=== PATIENT | male | born 1945 ===

== ENCOUNTER 2018-05-16 05:42 | Day surgery (SDC) | payer MEDICARE ==
[2018-04-02 10:16] VITALS: BMI 22.7
[2018-05-16 06:20] VITALS: O2SAT 100
[2018-05-16] MEDS ORDERED: Gentamicin 160 MG in Sodium Chloride 0.9% 100 ML IVPB ONE (07:13)
[2018-05-16] MEDS ORDERED: Ciprofloxacin 400mg/200ml D5W 0 MG/0 ML BAG IVPB ONE (07:35)
[2018-05-16] MEDS ORDERED: Lidocaine 2% Jelly (Uro-Jet) ONE (07:36)
[2018-05-16] MEDS ORDERED: Propofol 10 mg/ml Inj (20 ML) ONE (07:51)
[2018-05-16] MEDS ORDERED: Midazolam 2 MG/2 ML VIAL ONE (07:51)
[2018-05-16] MEDS: cefTRIAXone 1 gm 1 GM/100 ML BAG IVPB ONE ×2 (08:36→08:53)
--- NOTE | 2018-05-16 09:27 | PCM.SURG1 ---
Surgeon's Initial Post Op Note - Surgeon's Notes Surgeon: Bk Cody [employer] Specialist: none Type of Anesthesia: IV Sedation Pre-Operative Diagnosis: Elevated PSA Operative Findings: enlarged prostate Post-Operative Diagnosis: same Operation Performed: PUS, Prostate Bx Specimen/Specimens Removed: prostate bx Estimated Blood Loss: EBL {In ML}: 0 Blood Products Given: N/A Drains Used: No Drains Post-Op Condition: Good Date of Surgery/Procedure: 05/16/18 Time of Surgery/Procedure: 09:15
[2018-05-16 11:02] VITALS: BP 127/76; PULSE 77; RESP 18; TEMP 98
--- NOTE | 2018-05-19 02:57 | OP ---
PROCEDURE DATE: 05/16/2018 PREOPERATIVE DIAGNOSIS: Elevated serum prostate-specific antigen. POSTOPERATIVE DIAGNOSIS: Elevated serum prostate-specific antigen. PROCEDURES: Transrectal prostate ultrasound. Transrectal prostate biopsy. Ultrasound-guided biopsy of the prostate. SURGEON: Jeimy Cody MD. PROCEDURE: The patient received perioperative antibiotics. The patient was placed in lateral decubitus position. The rectum was prepped topically with Betadine solution and lidocaine jelly. Sedation was provided by the anesthesiologist. Rectal examination was performed. Prostate was firm and smooth without fixation, induration or nodularity. Prostate was approximately 25 mL in size. prostate ultrasound probe inserted per rectum. Prostate was scanned in sagittal and transverse planes. Prostate was measured three dimensions. Prostate volume was calculated. FINDINGS: The capsule of the prostate was well defined. There was moderate hetero echogenicity of the prostate. Seminal vesicles were normal. There were no dominant nodules in the prostate on ultrasound examination. There was mild calcification. The prostate width was 46.1 mm. Prostate height was 26.6 mm. The prostate length was 41.4 mm. Calculated prostate volume was 26.6 cubic centimeters. Prostate biopsy was performed under ultrasound control. Biopsies were obtained from right and left sides of prostate including base, mid and apical sections of the prostate. Two cores were obtained from each sextant. A total of 12 cores were thus obtained. Biopsies were obtained laterally as well as from any hypoechoic areas as well as in the parasagittal plane, within each sextant. Following prostate biopsy, rectal examination was performed. There was no bleeding noted. The patient tolerated the procedure without complication. Jeimy Cody MD
== END 2018-05-16 11:12 | disposition home or self-care (01) ==
LOC: C.SDS 05:42
PROVIDERS: ATTEND Urology
DX: R97.20 Elevated prostate specific antigen [PSA] (principal)
CPT/HCPCS: 55700; 82948; 88305; J0696; J1580

== ENCOUNTER 2018-06-09 07:58 | Day surgery (SDC) | payer MEDICARE ==
[2018-04-02 10:31] VITALS: BMI 22.7
[~2018-06-09 07:58] MED LIST: Iohexol 240 (50 ml) ONE; ceFAZolin IV 1 gm in Dextrose 0 GM/0 ML BAG IVPB ONE
[2018-06-09 09:11] VITALS: BP 124/70; PULSE 71; RESP 20; TEMP 98.4; O2SAT 100
== END 2018-06-09 09:50 | disposition still patient (30) ==
LOC: C.SDS 07:58
PROVIDERS: ATTEND Surgery Vascular Surgery
DX: K81.1 Chronic cholecystitis (principal); Z53.9 Procedure and treatment not carried out, unspecified reason
CPT/HCPCS: 47563; P000X

== ENCOUNTER 2018-06-09 09:52 | Inpatient (IN) | payer MEDICARE ==
[2018-06-09 10:02] VITALS: BMI 22.6
--- NOTE | 2018-06-09 11:10 | C.PDOC ---
History Of Present Illness 73 y/o male,w/PMhx of gallbladder disease, presents to the ER for gallbladder removal upon referral of . Patient states that he has a cholecystostomy tube for the past 2.5 months. Patient denies having fever, chills, and new symptoms. Time Seen by Provider: 06/09/18 10:52 Chief Complaint (Nursing): Medical Clearance History Per: Patient History/Exam Limitations: no limitations Onset/Duration Of Symptoms: Days Current Symptoms Are (Timing): Still Present Severity: Moderate Past Medical History Reviewed: Historical Data, Nursing Documentation, Vital Signs Vital Signs: Last Vital Signs Temp 97.5 F L 06/09/18 10:02 Pulse 79 06/09/18 10:02 Resp 18 06/09/18 10:02 BP 123/85 06/09/18 10:02 Pulse Ox 100 06/09/18 10:02 - Medical History PMH: Arthritis, CAD, Cardia Arrhythmia, Diabetes, Gall Bladder Disease, HTN, Hypercholesterolemia, Peripheral Edema, Pneumonia, Chronic Kidney Disease, TIA Surgical History: CABG, Coronary Stent, Pacemaker Family History: States: Unknown Family Hx - Social History Hx Tobacco Use: No Hx Alcohol Use: No Hx Substance Use: No Review Of Systems Except As Marked, All Systems Reviewed And Found Negative. Constitutional: Negative for: Fever, Chills Physical Exam - Physical Exam Appears: Non-toxic, No Acute Distress Skin: Normal Color, Warm, Dry Head: Atraumatic, Normacephalic Eye(s): bilateral: Normal Inspection Respiratory: Other (NARD) Gastrointestinal/Abdominal: Soft, No Tenderness, No Guarding, No Rebound, Other (draining cholecystostomy tube) Neurological/Psych: Oriented x3, Normal Speech ED Course And Treatment - Laboratory Results Result Diagrams: 06/10/18 07:19 06/10/18 07:19 O2 Sat by Pulse Oximetry: 100 (RA) Pulse Ox Interpretation: Normal Progress - Re-Evaluation Re-evaluation Note: 06/09/18 11:06 D/W DR RIDLEY, +ACUTE RICHELLE. WILL ADMIT FOR O.R. AWARE PT IS REFUSING IV OR LABS IN ER, AGREES TO HAVE IV, LABS BY ANESTHESIA. CONSULT DWIGHT MENDES 06/09/18 11:59 PER O.R., PT NOT SCHEDULED TODAY. WILL ADMIT MED SURG - Data Reviewed Data Reviewed: Diagnostic imaging, EKG Medical Decision Making Medical Decision Making: Patient is refusing ER Labs and IV.Patient states that he would like to have labs and IV placed by anaesthesia. Disposition Counseled Patient/Family Regarding: Diagnosis, Need For Followup - Disposition Disposition: HOSPITALIZED Disposition Time: 11:07 Condition: STABLE - Clinical Impression Clinical Impression: Acute cholecystitis - Scribe Statement The provider has reviewed the documentation as recorded by the Cecilia Diaz Provider Attestation: All medical record entries made by the Cecilia were at my direction and personally dictated by me. I have reviewed the chart and agree that the record accurately reflects my personal performance of the history, physical exam, medical decision making, and the department course for this patient. I have also personally directed, reviewed, and agree with the discharge instructions and disposition.
--- NOTE | 2018-06-09 16:36 | CP.PCM.CON ---
History of Present Illness - History of Present Illness History of Present Illness: General surgery consult note for Dr. Boyer Consulted for: s/p cholecystostomy tube, plan for interval cholecystectomy Pt is a 73M with PMH of many comorbidities and acute cholecystitis with cholecystostomy tube placement 2.5 months ago. Patient was scheduled for a cholecystectomy today after being admitted over the weekend per cardiology's recommendations for further pre-op evaluation and optimization, but patient did not come to the hospital prior to this AM. Pt denies any current illnesses, abdominal pain, nausea, vomiting, diarrhea, SOB, chest pain, or any other symptoms. PMH: arthritis, CAD, arrhythmia, DM, cholecystitis, HTN, HLD, peripheral edema, pneumonia, CKD, TIA PSH: cholecystostomy tube insertion, CABG, coronary stent, pacemaker placement ALL: NKDA Review of Systems - Review of Systems All systems: reviewed and no additional remarkable complaints except (as per HPI) Past Patient History - Infectious Disease Hx of Infectious Diseases: None - Tetanus Immunizations Tetanus Immunization: Unknown - Past Medical History & Family History Past Medical History?: Yes Past Family History: Reviewed and not pertinent - Past Social History Smoking Status: Former Smoker - CARDIAC Hx Cardia Arrhythmia: Yes Hx Hypercholesterolemia: Yes Hx Hypertension: Yes Hx Pacemaker: Yes Hx Peripheral Edema: Yes - PULMONARY Hx Pneumonia: Yes - NEUROLOGICAL Hx Transient Ischemic Attacks (TIA): Yes - RENAL Hx Chronic Kidney Disease: Yes - ENDOCRINE/METABOLIC Hx Endocrine Disorders: Yes Hx Diabetes Mellitus Type 2: Yes - HEMATOLOGICAL/ONCOLOGICAL Hx Blood Disorders: No - INTEGUMENTARY Hx Dermatological Problems: No - MUSCULOSKELETAL/RHEUMATOLOGICAL Hx Arthritis: Yes - GASTROINTESTINAL Hx Gall Bladder Disease: Yes - GENITOURINARY/GYNECOLOGICAL Hx Genitourinary Disorders: Yes Hx Prostate Problems: Yes - PSYCHIATRIC Hx Substance Use: No - SURGICAL HISTORY Hx Coronary Artery Bypass Graft: Yes Hx Coronary Stent: Yes - ANESTHESIA Hx Anesthesia: Yes Meds Allergies/Adverse Reactions: Allergies Allergy/AdvReac Type Severity Reaction Status Date / Time No Known Allergies Allergy Verified 05/29/18 09:59 - Medications Medications: Current Medications Enoxaparin Sodium (Lovenox) 60 mg SC Q12 AMISH Stop: 06/10/18 11:00 Physical Exam - Constitutional Appears: Well, Non-toxic, No Acute Distress - Head Exam Head Exam: ATRAUMATIC, NORMOCEPHALIC - Eye Exam Eye Exam: Normal appearance. absent: Conjunctival injection, Scleral icterus - ENT Exam ENT Exam: Mucous Membranes Moist, Normal Oropharynx - Respiratory Exam Respiratory Exam: NORMAL BREATHING PATTERN. absent: Accessory Muscle Use, Respiratory Distress - Cardiovascular Exam Cardiovascular Exam: RRR - GI/Abdominal Exam GI & Abdominal Exam: Soft. absent: Distended, Tenderness Additional comments: cholecystostomy tube in place with moderate amount of clear green fluid - Extremities Exam Extremities exam: Positive for: pedal pulses present. Negative for: calf tenderness, pedal edema - Neurological Exam Neurological exam: Alert, Oriented x3 - Psychiatric Exam Psychiatric exam: Normal Affect, Normal Mood - Skin Skin Exam: Dry, Normal Color, Warm Results - Vital Signs Recent Vital Signs: Last Vital Signs Temp 97.9 F 06/09/18 15:05 Pulse 90 06/09/18 15:05 Resp 20 06/09/18 15:05 BP 149/89 06/09/18 15:05 Pulse Ox 100 06/09/18 15:05 Assessment & Plan - Assessment and Plan (Free Text) Assessment: 73M with cholecystostomy tube placement 2.5 months ago for acute cholecystitis with many comorbidities Plan: Admit to Dr. Combs for medical evaluation and optimization Plan for OR on 06/11 HHD PRN pain and nausea medication CT abdomen and pelvis with PO contrast Subcutaneous lovenox or Heparin for anticoagulation to be held day of surgery Discussed with Dr. Boyer, who agrees with above Skyla Quintero, PGY2
[2018-06-09] MEDS ORDERED: Dextrose 50% SYRINGE Inj (50 ml) IV PRN (17:20)
[2018-06-09] MEDS ORDERED: Glucagon Recombinant 1 mg Inj IM PRN (17:20)
[2018-06-09] MEDS ORDERED: Iohexol 240 (50 ml) PO ONE (19:00)
[2018-06-09] MEDS ORDERED: Enoxaparin 60 mg Syringe SC SCH (22:00)
[2018-06-09] MEDS: (Novolog) Insulin Aspart, Recombinant 100 u/ml 10 ml vial SC SCH (22:57)
[2018-06-10 07:30] LABS: BASO # 0.1 K/uL (0.0-0.2); BASO % 1.2 % (0.0-2.0); EOS # 0.3 K/uL (0.0-0.7); HEMOGLOBIN 13.4 g/dL (12.0-18.0); LYMPH # 1.8 K/uL (1.0-4.3); LYMPH % 32.5 % (20.0-40.0); MEAN CORPUSCULAR HEMOGLOBIN 30.1 pg (27.0-31.0); MEAN CORPUSCULAR HGB CONC 34.2 g/dL (33.0-37.0); MONO # 0.6 K/uL (0.0-0.8); MONO % 10.6 % (0.0-10.0); NEUT # 2.8 K/uL (1.8-7.0); NEUT % 49.7 % (50.0-75.0); RBC 4.46 Mil/uL (4.40-5.90); RED CELL DISTRIBUTION WIDTH 14.4 % (11.5-14.5); WHITE BLOOD COUNT 5.6 K/uL (4.8-10.8)
[2018-06-10 07:34] LABS: PROTHROMBIN TIME 10.7 SECONDS (9.7-12.2)
[2018-06-10 07:37] LABS: ALB/GLOB RATIO 1.2 (1.0-2.1); ALT/SGPT 22 U/L (21-72); AST/SGOT 32 U/L (17-59); BLOOD UREA NITROGEN 29 mg/dL (9-20); CALCIUM 9.5 mg/dl (8.6-10.4); GFR NON-AFRICAN AMERICAN 54
[2018-06-10] MEDS: (Novolog) Insulin Aspart, Recombinant 100 u/ml 10 ml vial SC SCH ×4 (08:18→21:43)
--- NOTE | 2018-06-10 08:24 | CP.PCM.PN ---
Subjective - Date & Time of Evaluation Date of Evaluation: 06/10/18 Time of Evaluation: 08:21 - Subjective Subjective: Surgery PT seen and examined. No acute events. Denies fever, nausea, vomiting, CP, SOB, abd pain. CT taken yesterday. Objective - Vital Signs/Intake and Output Vital Signs (last 24 hours): Temp Pulse Resp BP Pulse Ox 97.8 F 81 20 131/75 98 06/10/18 08:00 06/10/18 08:00 06/10/18 08:00 06/10/18 08:00 06/10/18 08:00 Intake and Output: 06/10/18 06/10/18 06:59 18:59 Intake Total 800 240 Output Total 550 Balance 800 -310 - Medications Medications: Current Medications Allopurinol (Zyloprim) 300 mg PO DAILY ON LICENSE OF [facility] Carvedilol (Coreg) 3.125 mg PO BID ON LICENSE OF [facility] Last Admin: 06/09/18 18:50 Dose: 3.125 mg Colchicine (Colocrys) 0.6 mg PO DAILY ON LICENSE OF [facility] Dextrose (Dextrose 50% Inj) 0 ml IV STAT PRN; Protocol PRN Reason: Hypoglycemia Protocol Dextrose (Glutose 15) 0 gm PO ONCE PRN; Protocol PRN Reason: Hypoglycemia Protocol Docusate Sodium (Colace) 100 mg PO BID ON LICENSE OF [facility] Last Admin: 06/09/18 18:50 Dose: 100 mg Furosemide (Lasix) 40 mg PO DAILY ON LICENSE OF [facility] Glucagon (Glucagen Diagnostic Kit) 0 mg IM STAT PRN; Protocol PRN Reason: Hypoglycemia Protocol Heparin Sodium (Porcine) (Heparin) 5,000 units SC Q8 ON LICENSE OF [facility] Last Admin: 06/10/18 06:02 Dose: 5,000 units Dextrose (Dextrose 5% In Water 1000 Ml) 1,000 mls @ 0 mls/hr IV .Q0M PRN; Protocol PRN Reason: Hypoglycemia Protocol Insulin Aspart (Novolog) 0 unit SC ACHS ON LICENSE OF [facility]; Protocol Last Admin: 06/10/18 08:18 Dose: 1 unit Rosuvastatin Calcium (Crestor) 20 mg PO HS ON LICENSE OF [facility] Last Admin: 06/09/18 22:56 Dose: 20 mg - Labs Labs: 06/10/18 07:19 06/10/18 07:19 PT 10.7 SECONDS (9.7-12.2) 06/10/18 07:12 INR 1.0 06/10/18 07:12 APTT 46 SECONDS (21-34) H 06/10/18 07:12 - Constitutional Appears: No Acute Distress - Head Exam Head Exam: ATRAUMATIC, NORMAL INSPECTION, NORMOCEPHALIC - Eye Exam Eye Exam: EOMI, Normal appearance, PERRL Pupil Exam: NORMAL ACCOMODATION, PERRL - ENT Exam ENT Exam: Mucous Membranes Moist, Normal Exam - Neck Exam Neck Exam: Full ROM, Normal Inspection. absent: Lymphadenopathy - Respiratory Exam Respiratory Exam: NORMAL BREATHING PATTERN - Cardiovascular Exam Cardiovascular Exam: REGULAR RHYTHM, +S1, +S2. absent: Murmur - GI/Abdominal Exam GI & Abdominal Exam: Soft, Normal Bowel Sounds. absent: Distended, Tenderness Additional comments: R drain in place: bilious output. minimal output. - Extremities Exam Extremities Exam: Full ROM, Normal Inspection - Back Exam Back Exam: NORMAL INSPECTION - Neurological Exam Neurological Exam: Alert, Awake, CN II-XII Intact, Normal Gait, Oriented x3 - Psychiatric Exam Psychiatric exam: Normal Affect, Normal Mood - Skin Skin Exam: Dry, Intact, Normal Color, Warm Assessment and Plan - Assessment and Plan (Free Text) Assessment: 73M with cholecystostomy tube placement 2.5 months ago for acute cholecystitis with many comorbidities CT: CBD stone 1cm. Plan: GI consult for choledocolithiasis Admit to Dr. Combs for medical evaluation and optimization Plan for OR on 06/11 HHD PRN pain and nausea medication CT abdomen and pelvis with PO contrast Subcutaneous lovenox or Heparin for anticoagulation to be held day of surgery Will Discuss with Dr. Boyer,
--- NOTE | 2018-06-10 11:30 | CT ---
Date of service: 06/09/2018 PROCEDURE: CT Abdomen and Pelvis without intravenous contrast HISTORY: s/p cholecystostomy COMPARISON: 12/27/2014 CT angiography abdominal/iliofemoral TECHNIQUE: Without contrast.. Contrast dose: 0 Radiation dose: Total exam DLP = 601.92 mGy-cm. This CT exam was performed using one or more of the following dose reduction techniques: Automated exposure control, adjustment of the mA and/or kV according to patient size, and/or use of iterative reconstruction technique. FINDINGS: LOWER THORAX: Cardiomegaly. CABG. Sternotomy wires. No infiltrate/effusion. LIVER: Unremarkable. No gross lesion or ductal dilatation. GALLBLADDER AND BILE DUCTS: Status post cholecystectomy. There is a cylindrical collection seen in the region of the gallbladder fossa containing multiple dependent calculi as well as 1 large 11 mm calculus. There is a percutaneous drainage catheter extending into this collection. This may represent a dilated cystic duct remnant or may represent a postoperative collection, with calculi. No evidence of edema or inflammation. PANCREAS: Unremarkable. No gross lesion or ductal dilatation. SPLEEN: Unremarkable. ADRENALS: Unremarkable. No mass. KIDNEYS AND URETERS: Unremarkable. No hydronephrosis. No solid mass. VASCULATURE: Unremarkable. No aortic aneurysm. BOWEL: Unremarkable. No obstruction. No gross mural thickening. APPENDIX: Unremarkable. Normal appendix. PERITONEUM: Unremarkable. No free fluid. No free air. LYMPH NODES: Unremarkable. No enlarged lymph nodes. BLADDER: Unremarkable. REPRODUCTIVE: Normal prostate BONES: No acute fracture. OTHER FINDINGS: None. IMPRESSION: Cylindrical postoperative collection versus cystic duct remnant status post cholecystectomy. Multiple calculi within this tubular collection/cystic duct. Percutaneous drainage catheter extends to this collection. No calculus identified within the common bile duct and no common duct dilatation nor intrahepatic dilatation. No other acute abnormality. Nonacute findings as above. The preliminary findings for this examination were reported by [facility] at 9:24 p.m. on 06/09/2018. There is discordance of this report with the preliminary findings. Preliminary report described a calculus in the common bile duct. This is discordant with the above report.
--- NOTE | 2018-06-10 12:07 | CP.PCM.CON ---
History of Present Illness - History of Present Illness History of Present Illness: 73M with PMH of many comorbidities and acute cholecystitis with cholecystostomy tube placement 2.5 months ago. Patient was scheduled for a cholecystectomy today after being admitted over the weekend per cardiology's recommendations for further pre-op evaluation and optimization, denies fever chills or abd pain right cholecystostomy tube in place PMH: arthritis, CAD, arrhythmia, DM, cholecystitis, HTN, HLD, peripheral edema, pneumonia, CKD, TIA PSH: cholecystostomy tube insertion, CABG, coronary stent, pacemaker placement ALL: NKDA Review of Systems - Review of Systems All systems: reviewed and no additional remarkable complaints except - Constitutional Constitutional: As Per HPI - EENT Eyes: absent: As Per HPI, Blind Spots, Blurred Vision, Change in Vision, Decreased Night Vision, Diplopia, Discharge, Dry Eye, Exophthalmos, Floaters, Irritation, Itchy Eyes, Loss of Peripheral Vision, Pain, Photophobia, Requires Corrective Lenses, Sees Flashes, Spots in Vision, Tunnel Vision, Other Visual Disturbances, Loss of Vision, Other Ears: absent: As Per HPI, Decreased Hearing, Ear Discharge, Ear Pain, Tinnitus, Abnormal Hearing, Disequilibrium, Dizziness, Other Nose/Mouth/Throat: absent: As Per HPI, Epistaxis, Nasal Congestion, Nasal Discharge, Nasal Obstruction, Nasal Trauma, Nose Pain, Post Nasal Drip, Sinus Pain, Sinus Pressure, Bleeding Gums, Change in Voice, Dental Pain, Dry Mouth, Dysphagia, Halitosis, Hoarsness, Lip Swelling, Mouth Lesions, Mouth Pain, Odynophagia, Sore Throat, Throat Swelling, Tongue Swelling, Facial Pain, Neck Pain, Neck Mass, Other - Cardiovascular Cardiovascular: As Per HPI - Respiratory Respiratory: absent: As Per HPI, Cough, Dyspnea, Hemoptysis, Dyspnea on Exertion, Wheezing, Snoring, Stridor, Pain on Inspiration, Chest Congestion, Excessive Mucous Production, Change in Mucous Color, Pain with Coughing, Other - Gastrointestinal Gastrointestinal: As Per HPI - Genitourinary Genitourinary: absent: As Per HPI, Change in Urinary Stream, Difficulty Urinating, Dysuria, Flank Pain, Hematuria, Pyuria, Nocturia, Urinary Incontinence, Urinary Frequency, Urinary Hesitance, Urinary Urgency, Voiding Freq/Small Amts, Freq UTI, Hx Renal/Bladder Calculi, Hx /Renal Surgery, Bladder Distension, Other - Musculoskeletal Musculoskeletal: absent: As Per HPI, Abnormal Gait, Arthralgias, Atrophy, Back Pain, Deformity, Joint Swelling, Limited Range of Motion, Loss of Height, Muscle Cramps, Muscle Weakness, Myalgias, Neck Pain, Numbness, Radiating Pain into Limb, Stiffness, Tingling, Other - Integumentary Integumentary: absent: As Per HPI, Acne, Alopecia, Bleeding Lesions, Change in Hair, Change in Nails, Change in Pigmentation, Changing Lesions, Dry Skin, Erythema, Furuncle, Hirsutism, Lesions, New Lesions, Non-Healing Lesions, Photosensitivity, Pruritus, Rash, Skin Pain, Skin Ulcer, Sores, Striae, Swelling, Unusual Bruising, Wounds, Jaundice, Other - Neurological Neurological: absent: As Per HPI, Abnormal Gait, Abnormal Hearing, Abnormal Movements, Abnormal Speech, Behavioral Changes, Burning Sensations, Confusion, Convulsions, Disequilibrium, Dizziness, Numbness, Focal Weakness, Frequent Falls, Headaches, Lack of Coordination, Loss of Vision, Memory Loss, Paresthesias, Radicular Pain, Restless Legs, Sensory Deficit, Syncope, Tingling, Tremor, Vertigo, Weakness, Other Visual Disturbances, Other - Psychiatric Psychiatric: absent: As Per HPI, Abnormal Sleep Pattern, Anhedonia, Anxiety, Auditory Hallucinations, Behavioral Changes, Change in Appetite, Change in Hali ronnie, Confusion, Depression, Difficulty Concentrating, Hallucinations, Homicidal Ideation, Hopelessness, Irritability, Memory Loss, Mood Swings, Panic Attacks, Paranoia, Suicidal Ideation, Visual Hallucinations, Tactile Hallucinations, Other - Endocrine Endocrine: absent: As Per HPI, Change in Body Appearance, Change in Libido, Cold Intolorance, Deepening of Voice, Excessive Sweating, Fatigue, Flushing, Heat Intolorance, Increase in Ring/Shoe/Hat Size, Palpitations, Polydipsia, Polyphagia, Polyuria, Other - Hematologic/Lymphatic Hematologic: absent: As Per HPI, Easy Bleeding, Easy Bruising, Lymphadenopathy, Other Past Patient History - Infectious Disease Hx of Infectious Diseases: None - Tetanus Immunizations Tetanus Immunization: Unknown - Past Medical History & Family History Past Medical History?: Yes Past Family History: Reviewed and not pertinent - Past Social History Smoking Status: Former Smoker - CARDIAC Hx Cardia Arrhythmia: Yes Hx Hypercholesterolemia: Yes Hx Hypertension: Yes Hx Pacemaker: Yes Hx Peripheral Edema: Yes - PULMONARY Hx Pneumonia: Yes - NEUROLOGICAL Hx Transient Ischemic Attacks (TIA): Yes - RENAL Hx Chronic Kidney Disease: Yes - ENDOCRINE/METABOLIC Hx Endocrine Disorders: Yes Hx Diabetes Mellitus Type 2: Yes - HEMATOLOGICAL/ONCOLOGICAL Hx Blood Disorders: No - INTEGUMENTARY Hx Dermatological Problems: No - MUSCULOSKELETAL/RHEUMATOLOGICAL Hx Arthritis: Yes - GASTROINTESTINAL Hx Gall Bladder Disease: Yes - GENITOURINARY/GYNECOLOGICAL Hx Genitourinary Disorders: Yes Hx Prostate Problems: Yes - PSYCHIATRIC Hx Substance Use: No - SURGICAL HISTORY Hx Coronary Artery Bypass Graft: Yes Hx Coronary Stent: Yes - ANESTHESIA Hx Anesthesia: Yes Meds Allergies/Adverse Reactions: Allergies Allergy/AdvReac Type Severity Reaction Status Date / Time No Known Allergies Allergy Verified 05/29/18 09:59 - Medications Medications: Current Medications Allopurinol (Zyloprim) 300 mg PO DAILY [facility] Last Admin: 06/10/18 10:29 Dose: 300 mg Carvedilol (Coreg) 3.125 mg PO BID [facility] Last Admin: 06/10/18 10:29 Dose: 3.125 mg Colchicine (Colocrys) 0.6 mg PO DAILY [facility] Last Admin: 06/10/18 10:29 Dose: 0.6 mg Dextrose (Dextrose 50% Inj) 0 ml IV STAT PRN; Protocol PRN Reason: Hypoglycemia Protocol Dextrose (Glutose 15) 0 gm PO ONCE PRN; Protocol PRN Reason: Hypoglycemia Protocol Docusate Sodium (Colace) 100 mg PO BID [facility] Last Admin: 06/10/18 10:29 Dose: 100 mg Furosemide (Lasix) 40 mg PO DAILY [facility] Last Admin: 06/10/18 10:29 Dose: 40 mg Glucagon (Glucagen Diagnostic Kit) 0 mg IM STAT PRN; Protocol PRN Reason: Hypoglycemia Protocol Heparin Sodium (Porcine) (Heparin) 5,000 units SC Q8 [facility] Last Admin: 06/10/18 06:02 Dose: 5,000 units Dextrose (Dextrose 5% In Water 1000 Ml) 1,000 mls @ 0 mls/hr IV .Q0M PRN; Protocol PRN Reason: Hypoglycemia Protocol Insulin Aspart (Novolog) 0 unit SC ACHS [facility]; Protocol Last Admin: 06/10/18 11:31 Dose: 5 unit Rosuvastatin Calcium (Crestor) 20 mg PO HS [facility] Last Admin: 06/09/18 22:56 Dose: 20 mg Physical Exam - Constitutional Appears: Non-toxic, Chronically Ill - Head Exam Head Exam: NORMOCEPHALIC - Eye Exam Eye Exam: absent: Scleral icterus - ENT Exam ENT Exam: Mucous Membranes Dry - Neck Exam Neck exam: Negative for: Lymphadenopathy - Respiratory Exam Respiratory Exam: Decreased Breath Sounds - Cardiovascular Exam Cardiovascular Exam: REGULAR RHYTHM - GI/Abdominal Exam GI & Abdominal Exam: Diminished Bowel Sounds Additional comments: ruq drain - Rectal Exam Rectal Exam: Deferred - Exam Exam: NORMAL INSPECTION - Extremities Exam Extremities exam: Negative for: pedal edema - Back Exam Back exam: absent: CVA tenderness (L), CVA tenderness (R) - Neurological Exam Neurological exam: Alert, CN II-XII Intact, Oriented x3, Reflexes Normal - Psychiatric Exam Psychiatric exam: Depressed - Skin Skin Exam: Dry Results - Vital Signs Recent Vital Signs: Last Vital Signs Temp 97.8 F 06/10/18 08:00 Pulse 81 06/10/18 08:00 Resp 20 06/10/18 08:00 BP 131/75 06/10/18 10:29 Pulse Ox 98 06/10/18 08:00 - Labs Result Diagrams: 06/10/18 07:19 06/10/18 07:19 Labs: Laboratory Results - last 24 hr 06/09/18 06/09/18 06/10/18 16:49 21:23 07:07 WBC RBC Hgb Hct MCV MCH MCHC RDW Plt Count MPV Neut % (Auto) Lymph % (Auto) Teller % (Auto) Eos % (Auto) Baso % (Auto) Neut # (Auto) Lymph # (Auto) Teller # (Auto) Eos # (Auto) Baso # (Auto) PT INR APTT Sodium Potassium Chloride Carbon Dioxide Anion Gap BUN Creatinine Est GFR ( Amer) Est GFR (Non-Af Amer) POC Glucose (mg/dL) 267 H 299 H 198 H Random Glucose Calcium Total Bilirubin AST ALT Alkaline Phosphatase Total Protein Albumin Globulin Albumin/Globulin Ratio 06/10/18 06/10/18 06/10/18 07:12 07:19 07:19 WBC 5.6 RBC 4.46 Hgb 13.4 Hct 39.2 MCV 88.0 MCH 30.1 MCHC 34.2 RDW 14.4 Plt Count 186 MPV 9.0 Neut % (Auto) 49.7 L Lymph % (Auto) 32.5 Teller % (Auto) 10.6 H Eos % (Auto) 6.0 H Baso % (Auto) 1.2 Neut # (Auto) 2.8 Lymph # (Auto) 1.8 Teller # (Auto) 0.6 Eos # (Auto) 0.3 Baso # (Auto) 0.1 PT 10.7 INR 1.0 APTT 46 H Sodium 142 Potassium 4.2 Chloride 105 Carbon Dioxide 22 Anion Gap 19 BUN 29 H Creatinine 1.3 Est GFR ( Amer) > 60 Est GFR (Non-Af Amer) 54 POC Glucose (mg/dL) Random Glucose 215 H Calcium 9.5 Total Bilirubin 0.5 AST 32 ALT 22 Alkaline Phosphatase 92 Total Protein 7.2 Albumin 4.0 Globulin 3.3 Albumin/Globulin Ratio 1.2 06/10/18 10:57 WBC RBC Hgb Hct MCV MCH MCHC RDW Plt Count MPV Neut % (Auto) Lymph % (Auto) Teller % (Auto) Eos % (Auto) Baso % (Auto) Neut # (Auto) Lymph # (Auto) Teller # (Auto) Eos # (Auto) Baso # (Auto) PT INR APTT Sodium Potassium Chloride Carbon Dioxide Anion Gap BUN Creatinine Est GFR ( Amer) Est GFR (Non-Af Amer) POC Glucose (mg/dL) 400 H* Random Glucose Calcium Total Bilirubin AST ALT Alkaline Phosphatase Total Protein Albumin Globulin Albumin/Globulin Ratio Assessment & Plan (1) Cholecystostomy care Status: Acute (2) Cholecystostomy care Status: Acute (3) Acute cholecystitis Status: Acute - Assessment and Plan (Free Text) Assessment: no signs of systemic infection for OR/ cholecystectomy routine IV antibiotics perioperatively no need for ferry terminal agent rx at this time will follow closely with you
--- NOTE | 2018-06-10 15:39 | RAD ---
Date of service: 06/10/2018 HISTORY: preop COMPARISON: 04/02/2018 FINDINGS: LUNGS: No active pulmonary disease. PLEURA: No significant pleural effusion identified, no pneumothorax apparent. CARDIOVASCULAR: Normal heart size. Permanent pacemaker. CABG. No congestive change. OSSEOUS STRUCTURES: No significant abnormalities. VISUALIZED UPPER ABDOMEN: Normal. OTHER FINDINGS: None. IMPRESSION: No active disease.
[2018-06-10] MEDS ORDERED: Iodixanol 320 mg/ml 150 ml Bottle IV ONE (16:49)
--- NOTE | 2018-06-10 17:03 | PCM.SURG1 ---
Surgeon's Initial Post Op Note - Surgeon's Notes Surgeon: Joanna Covering Machine Tender: None Type of Anesthesia: None Pre-Operative Diagnosis: Tube check Operative Findings: Cholecystotomy tube check Post-Operative Diagnosis: Tube check Operation Performed: Tube check Specimen/Specimens Removed: None Estimated Blood Loss: EBL {In ML}: 0 Date of Surgery/Procedure: 06/10/18 Time of Surgery/Procedure: 17:00
--- NOTE | 2018-06-10 17:05 | CP.PCM.CON ---
History of Present Illness - History of Present Illness History of Present Illness: This is a 73 year old man admitted for cholecystectoy. Patient is known to me from the office. Elevated LFTs were noted in March,, with AST 135, ALT 188. Sonogram 03/11/2017 showed cholelithiasis and normal CBD measuring 5 mm. Repeat labs 07/25/2017 showed AST 44 and ALT 44. Patient was admitted to [facility] two months ago with acute cholecystits and a cholecystostomy tube was placed. He is admitted now for cholecystectomy. CT scan showed a possible stone in the cystic duct or CBC. He complains of constipation, with infrequent bowel movements, every four days. He denies having rectal bleeding or diarrhea. He also denies having nausea, vomiting, difficulty swallowing, heartburn, loss of appetite. He lost 15 pounds durnig the hospitalization aand subsequent stay in rehab. Colonoscopy was performed 03/06/2018 and showed a 5 mm polyp (tubular adenoma) and internal hemorrhoids. Review of Systems - Review of Systems All systems: reviewed and no additional remarkable complaints except - Constitutional Constitutional: Weight Loss - Gastrointestinal Gastrointestinal: Constipation. absent: Abdominal Pain, Dysphagia, Heartburn, Nausea, Vomiting Past Patient History - Infectious Disease Hx of Infectious Diseases: None - Tetanus Immunizations Tetanus Immunization: Unknown - Past Medical History & Family History Past Medical History?: Yes Past Family History: Reviewed and not pertinent - Past Social History Smoking Status: Former Smoker - CARDIAC Hx Cardiac Disorders: Yes (PACEMAKER) Hx Hypercholesterolemia: Yes Hx Hypertension: Yes - PULMONARY Hx Pneumonia: Yes - NEUROLOGICAL Hx Transient Ischemic Attacks (TIA): Yes - RENAL Hx Chronic Kidney Disease: Yes - ENDOCRINE/METABOLIC Hx Diabetes Mellitus Type 2: Yes - HEMATOLOGICAL/ONCOLOGICAL Hx Blood Disorders: No - INTEGUMENTARY Hx Dermatological Problems: No - MUSCULOSKELETAL/RHEUMATOLOGICAL Hx Arthritis: Yes - GASTROINTESTINAL Hx Gall Bladder Disease: Yes - GENITOURINARY/GYNECOLOGICAL Hx Genitourinary Disorders: Yes Hx Prostate Problems: Yes - PSYCHIATRIC Hx Substance Use: No - SURGICAL HISTORY Hx Coronary Artery Bypass Graft: Yes Hx Coronary Stent: Yes - ANESTHESIA Hx Anesthesia: Yes Meds Allergies/Adverse Reactions: Allergies Allergy/AdvReac Type Severity Reaction Status Date / Time No Known Allergies Allergy Verified 05/29/18 09:59 - Medications Medications: Current Medications Allopurinol (Zyloprim) 300 mg PO DAILY [facility] Last Admin: 06/10/18 10:29 Dose: 300 mg Carvedilol (Coreg) 3.125 mg PO BID [facility] Last Admin: 06/10/18 10:29 Dose: 3.125 mg Colchicine (Colocrys) 0.6 mg PO DAILY [facility] Last Admin: 06/10/18 10:29 Dose: 0.6 mg Dextrose (Dextrose 50% Inj) 0 ml IV STAT PRN; Protocol PRN Reason: Hypoglycemia Protocol Dextrose (Glutose 15) 0 gm PO ONCE PRN; Protocol PRN Reason: Hypoglycemia Protocol Docusate Sodium (Colace) 100 mg PO BID [facility] Last Admin: 06/10/18 10:29 Dose: 100 mg Furosemide (Lasix) 40 mg PO DAILY [facility] Last Admin: 06/10/18 10:29 Dose: 40 mg Glucagon (Glucagen Diagnostic Kit) 0 mg IM STAT PRN; Protocol PRN Reason: Hypoglycemia Protocol Heparin Sodium (Porcine) (Heparin) 5,000 units SC Q8 [facility] Last Admin: 06/10/18 13:33 Dose: 5,000 units Dextrose (Dextrose 5% In Water 1000 Ml) 1,000 mls @ 0 mls/hr IV .Q0M PRN; Protocol PRN Reason: Hypoglycemia Protocol Influenza Virus Vaccine (Fluzone Quad [id number]) 60 mcg IM .ONCE ONE Stop: 06/11/18 10:01 Insulin Aspart (Novolog) 0 unit SC ACHS [facility]; Protocol Last Admin: 06/10/18 11:31 Dose: 5 unit Pneumococcal Polyvalent Vaccine (Pneumovax 23 Vaccine) 0.5 ml IM .ONCE ONE Stop: 06/11/18 10:01 Rosuvastatin Calcium (Crestor) 20 mg PO [facility] Last Admin: 06/09/18 22:56 Dose: 20 mg Physical Exam - Constitutional Appears: No Acute Distress - Head Exam Head Exam: ATRAUMATIC, NORMOCEPHALIC - Eye Exam Eye Exam: EOMI, PERRL - Neck Exam Neck exam: Negative for: Lymphadenopathy, Thyromegaly - Respiratory Exam Respiratory Exam: NORMAL BREATHING PATTERN. absent: Rales, Rhonchi, Wheezes - Cardiovascular Exam Cardiovascular Exam: REGULAR RHYTHM, +S1, +S2. absent: Gallop, Rubs, Systolic Murmur - GI/Abdominal Exam GI & Abdominal Exam: Normal Bowel Sounds, Soft. absent: Mass, Organomegaly, Tenderness Additional comments: Cholecystostomy tube in place - Rectal Exam Rectal Exam: Deferred - Extremities Exam Extremities exam: Negative for: calf tenderness, pedal edema Results - Vital Signs Recent Vital Signs: Last Vital Signs Temp 97.6 F 06/10/18 16:00 Pulse 73 06/10/18 16:00 Resp 20 06/10/18 16:00 BP 138/82 06/10/18 16:00 Pulse Ox 100 06/10/18 16:00 - Labs Result Diagrams: 06/10/18 07:19 06/10/18 07:19 Labs: Laboratory Results - last 24 hr 06/09/18 06/10/18 06/10/18 21:23 07:07 07:12 WBC RBC Hgb Hct MCV MCH MCHC RDW Plt Count MPV Neut % (Auto) Lymph % (Auto) Lake % (Auto) Eos % (Auto) Baso % (Auto) Neut # (Auto) Lymph # (Auto) Lake # (Auto) Eos # (Auto) Baso # (Auto) PT 10.7 INR 1.0 APTT 46 H Sodium Potassium Chloride Carbon Dioxide Anion Gap BUN Creatinine Est GFR ( Amer) Est GFR (Non-Af Amer) POC Glucose (mg/dL) 299 H 198 H Random Glucose Calcium Total Bilirubin AST ALT Alkaline Phosphatase Total Protein Albumin Globulin Albumin/Globulin Ratio 06/10/18 06/10/18 06/10/18 07:19 07:19 10:57 WBC 5.6 RBC 4.46 Hgb 13.4 Hct 39.2 MCV 88.0 MCH 30.1 MCHC 34.2 RDW 14.4 Plt Count 186 MPV 9.0 Neut % (Auto) 49.7 L Lymph % (Auto) 32.5 Lake % (Auto) 10.6 H Eos % (Auto) 6.0 H Baso % (Auto) 1.2 Neut # (Auto) 2.8 Lymph # (Auto) 1.8 Lake # (Auto) 0.6 Eos # (Auto) 0.3 Baso # (Auto) 0.1 PT INR APTT Sodium 142 Potassium 4.2 Chloride 105 Carbon Dioxide 22 Anion Gap 19 BUN 29 H Creatinine 1.3 Est GFR ( Amer) > 60 Est GFR (Non-Af Amer) 54 POC Glucose (mg/dL) 400 H* Random Glucose 215 H Calcium 9.5 Total Bilirubin 0.5 AST 32 ALT 22 Alkaline Phosphatase 92 Total Protein 7.2 Albumin 4.0 Globulin 3.3 Albumin/Globulin Ratio 1.2 06/10/18 16:08 WBC RBC Hgb Hct MCV MCH MCHC RDW Plt Count MPV Neut % (Auto) Lymph % (Auto) Lake % (Auto) Eos % (Auto) Baso % (Auto) Neut # (Auto) Lymph # (Auto) Lake # (Auto) Eos # (Auto) Baso # (Auto) PT INR APTT Sodium Potassium Chloride Carbon Dioxide Anion Gap BUN Creatinine Est GFR ( Amer) Est GFR (Non-Af Amer) POC Glucose (mg/dL) 137 H Random Glucose Calcium Total Bilirubin AST ALT Alkaline Phosphatase Total Protein Albumin Globulin Albumin/Globulin Ratio Assessment & Plan (1) Cholelithiasis NOS Assessment and Plan: 73 year old man with a history of acute cholecystitis two months ago now found to have an 11 mm stone, either in the neck of the gallbladder or in the cystic duct. Will repeat X-ray and possible CT scan. Status: Acute
--- NOTE | 2018-06-10 17:24 | RAD ---
Date of service: 06/10/2018 PROCEDURE: Fluoroscopy up to 1 hr. HISTORY: TUBE CONFIRMATION USING X-RAY CONTRAST COMPARISON: None TECHNIQUE: Standard protocol for this study/examination. FINDINGS: Total fluoroscopic time (continuous mode) utilized during the procedure 22.7 (seconds). Dose report: DLP 0.1692 7 (mGy/m2): IMPRESSION: Less than 1 hr fluoroscopic assistance provided during performance of the procedure.
--- NOTE | 2018-06-10 18:11 | RAD ---
Date of service: 06/10/2018 HISTORY: Check tube position COMPARISON: June 09, 2018 CT abdomen and pelvis FINDINGS: BOWEL: Normal. No obstruction. No free air. BONES: Normal. OTHER FINDINGS: Cholecystotomy catheter in the right upper quadrant and it appears in approximately stable position. IMPRESSION: Stable position of cholecystostomy catheter.
--- NOTE | 2018-06-10 19:04 | CT ---
Date of service: 06/10/2018 PROCEDURE: CT Abdomen and Pelvis without intravenous contrast HISTORY: re-evaluate gallbladder COMPARISON: June 09, 2018 TECHNIQUE: Unenhanced. Neither IV nor oral contrast administered Radiation dose: Total exam DLP = 868.23 mGy-cm. This CT exam was performed using one or more of the following dose reduction techniques: Automated exposure control, adjustment of the mA and/or kV according to patient size, and/or use of iterative reconstruction technique. FINDINGS: LOWER THORAX: Unremarkable. LIVER: Unremarkable. No gross lesion or ductal dilatation. GALLBLADDER AND BILE DUCTS: Stable position cholecystotomy catheter. Gallstones were better visualized on the recent CT contrast both within the gallbladder fossa and adjacent colon. PANCREAS: Unremarkable. No gross lesion or ductal dilatation. SPLEEN: Unremarkable. ADRENALS: Unremarkable. No mass. KIDNEYS AND URETERS: Unremarkable. No hydronephrosis. No solid mass. VASCULATURE: Unremarkable. No aortic aneurysm. BOWEL: Constipation without fecal impaction or obstruction. APPENDIX: Unremarkable. Normal appendix. PERITONEUM: Unremarkable. No free fluid. No free air. LYMPH NODES: Unremarkable. No enlarged lymph nodes. BLADDER: Unremarkable. REPRODUCTIVE: Unremarkable. BONES: No acute fracture. OTHER FINDINGS: None. IMPRESSION: Stable position of cholecystotomy catheter right upper quadrant. Poorly visualized gallstones again identified. No significant right upper quadrant fluid collections are seen nor is there evidence free air.
--- NOTE | 2018-06-11 07:18 | CP.PCM.HP ---
History of Present Illness - History of Present Illness History of Present Illness: CC: acute cholecystitis HPI Pt is a 73M with PMH of many comorbidities and acute cholecystitis with cholecystostomy tube placement 2.5 months ago. Patient was scheduled for a cholecystectomy today after being admitted over the weekend for further pre-op evaluation and optimization, but patient did not come to the hospital prior to t his AM. Pt denies any current illnesses, abdominal pain, nausea, vomiting, diarrhea, SOB, chest pain, or any other symptoms. Pt c/o persistent pain at cholecystostomy tube site placement. Present on Admission - Present on Admission Any Indicators Present on Admission: Yes History of Uncontrolled Diabetes: Yes Past Patient History - Infectious Disease Hx of Infectious Diseases: None - Tetanus Immunizations Tetanus Immunization: Unknown - Past Medical History & Family History Past Medical History?: Yes Past Family History: Reviewed and not pertinent - Past Social History Smoking Status: Former Smoker - CARDIAC Hx Cardiac Disorders: Yes (PACEMAKER) Hx Hypercholesterolemia: Yes Hx Hypertension: Yes - PULMONARY Hx Pneumonia: Yes - NEUROLOGICAL Hx Transient Ischemic Attacks (TIA): Yes - RENAL Hx Chronic Kidney Disease: Yes - ENDOCRINE/METABOLIC Hx Diabetes Mellitus Type 2: Yes - HEMATOLOGICAL/ONCOLOGICAL Hx Blood Disorders: No - INTEGUMENTARY Hx Dermatological Problems: No - MUSCULOSKELETAL/RHEUMATOLOGICAL Hx Arthritis: Yes - GASTROINTESTINAL Hx Gall Bladder Disease: Yes - GENITOURINARY/GYNECOLOGICAL Hx Genitourinary Disorders: Yes Hx Prostate Problems: Yes - PSYCHIATRIC Hx Substance Use: No - SURGICAL HISTORY Hx Coronary Artery Bypass Graft: Yes Hx Coronary Stent: Yes - ANESTHESIA Hx Anesthesia: Yes Meds Allergies/Adverse Reactions: Allergies Allergy/AdvReac Type Severity Reaction Status Date / Time No Known Allergies Allergy Verified 05/29/18 09:59 Physical Exam - Constitutional Appears: Non-toxic - Head Exam Head Exam: NORMAL INSPECTION - Eye Exam Eye Exam: absent: Scleral icterus - ENT Exam ENT Exam: Mucous Membranes Dry - Neck Exam Neck exam: Positive for: Full Rom. Negative for: Lymphadenopathy - Respiratory Exam Respiratory Exam: NORMAL BREATHING PATTERN - Cardiovascular Exam Cardiovascular Exam: REGULAR RHYTHM - GI/Abdominal Exam GI & Abdominal Exam: Soft Additional comments: +tender cholecystostomy site - Extremities Exam Extremities exam: Negative for: pedal edema Results - Vital Signs Recent Vital Signs: Last Vital Signs Temp 98.5 F 06/11/18 00:00 Pulse 74 06/11/18 00:00 Resp 20 06/11/18 00:00 BP 119/78 06/11/18 00:00 Pulse Ox 100 06/11/18 03:30 - Labs Result Diagrams: 06/10/18 07:19 06/10/18 07:19 Labs: Laboratory Results - last 24 hr 06/10/18 06/10/18 06/10/18 07:07 07:12 07:19 WBC 5.6 RBC 4.46 Hgb 13.4 Hct 39.2 MCV 88.0 MCH 30.1 MCHC 34.2 RDW 14.4 Plt Count 186 MPV 9.0 Neut % (Auto) 49.7 L Lymph % (Auto) 32.5 [place] % (Auto) 10.6 H Eos % (Auto) 6.0 H Baso % (Auto) 1.2 Neut # (Auto) 2.8 Lymph # (Auto) 1.8 [place] # (Auto) 0.6 Eos # (Auto) 0.3 Baso # (Auto) 0.1 PT 10.7 INR 1.0 APTT 46 H Sodium Potassium Chloride Carbon Dioxide Anion Gap BUN Creatinine Est GFR ( Amer) Est GFR (Non-Af Amer) POC Glucose (mg/dL) 198 H Random Glucose Calcium Total Bilirubin AST ALT Alkaline Phosphatase Total Protein Albumin Globulin Albumin/Globulin Ratio 06/10/18 06/10/18 06/10/18 07:19 10:57 16:08 WBC RBC Hgb Hct MCV MCH MCHC RDW Plt Count MPV Neut % (Auto) Lymph % (Auto) [place] % (Auto) Eos % (Auto) Baso % (Auto) Neut # (Auto) Lymph # (Auto) [place] # (Auto) Eos # (Auto) Baso # (Auto) PT INR APTT Sodium 142 Potassium 4.2 Chloride 105 Carbon Dioxide 22 Anion Gap 19 BUN 29 H Creatinine 1.3 Est GFR ( Amer) > 60 Est GFR (Non-Af Amer) 54 POC Glucose (mg/dL) 400 H* 137 H Random Glucose 215 H Calcium 9.5 Total Bilirubin 0.5 AST 32 ALT 22 Alkaline Phosphatase 92 Total Protein 7.2 Albumin 4.0 Globulin 3.3 Albumin/Globulin Ratio 1.2 06/10/18 21:10 WBC RBC Hgb Hct MCV MCH MCHC RDW Plt Count MPV Neut % (Auto) Lymph % (Auto) [place] % (Auto) Eos % (Auto) Baso % (Auto) Neut # (Auto) Lymph # (Auto) [place] # (Auto) Eos # (Auto) Baso # (Auto) PT INR APTT Sodium Potassium Chloride Carbon Dioxide Anion Gap BUN Creatinine Est GFR ( Amer) Est GFR (Non-Af Amer) POC Glucose (mg/dL) 227 H Random Glucose Calcium Total Bilirubin AST ALT Alkaline Phosphatase Total Protein Albumin Globulin Albumin/Globulin Ratio Assessment & Plan - Assessment and Plan (Free Text) Assessment: Acute cholecystitis CHolelithiasis r/o Choledocholithiasis CAD T2dm HTN Plan: GI,Gen surgery consult and ID consult Cont home meds DC all antiplatelet Heparin to bridge until after surgery
--- NOTE | 2018-06-11 07:32 | CP.PCM.PN ---
Subjective - Date & Time of Evaluation Date of Evaluation: 06/10/18 Time of Evaluation: 08:00 - Subjective Subjective: no chest pain no sob awaiting GI/ID eval On heparin off antiplatelet(plavix, ASA) Objective - Vital Signs/Intake and Output Vital Signs (last 24 hours): Temp Pulse Resp BP Pulse Ox 98.5 F 74 20 119/78 100 06/11/18 00:00 06/11/18 00:00 06/11/18 00:00 06/11/18 00:00 06/11/18 03:30 Intake and Output: 06/11/18 06/11/18 06:59 18:59 Output Total 330 Balance -330 - Medications Medications: Current Medications Allopurinol (Zyloprim) 300 mg PO DAILY [facility] Last Admin: 06/10/18 10:29 Dose: 300 mg Carvedilol (Coreg) 3.125 mg PO BID [facility] Last Admin: 06/10/18 19:29 Dose: 3.125 mg Colchicine (Colocrys) 0.6 mg PO DAILY [facility] Last Admin: 06/10/18 10:29 Dose: 0.6 mg Dextrose (Dextrose 50% Inj) 0 ml IV STAT PRN; Protocol PRN Reason: Hypoglycemia Protocol Dextrose (Glutose 15) 0 gm PO ONCE PRN; Protocol PRN Reason: Hypoglycemia Protocol Docusate Sodium (Colace) 100 mg PO BID [facility] Last Admin: 06/10/18 19:29 Dose: 100 mg Furosemide (Lasix) 40 mg PO DAILY [facility] Last Admin: 06/10/18 10:29 Dose: 40 mg Glucagon (Glucagen Diagnostic Kit) 0 mg IM STAT PRN; Protocol PRN Reason: Hypoglycemia Protocol Heparin Sodium (Porcine) (Heparin) 5,000 units SC Q8 [facility] Last Admin: 06/10/18 21:42 Dose: 5,000 units Dextrose (Dextrose 5% In Water 1000 Ml) 1,000 mls @ 0 mls/hr IV .Q0M PRN; Protocol PRN Reason: Hypoglycemia Protocol Influenza Virus Vaccine (Fluzone Quad [id number]) 60 mcg IM .ONCE ONE Stop: 06/11/18 10:01 Insulin Aspart (Novolog) 0 unit SC ACHS [facility]; Protocol Last Admin: 06/10/18 21:43 Dose: Not Given Pneumococcal Polyvalent Vaccine (Pneumovax 23 Vaccine) 0.5 ml IM .ONCE ONE Stop: 06/11/18 10:01 Rosuvastatin Calcium (Crestor) 20 mg PO HS [facility] Last Admin: 06/10/18 21:43 Dose: 20 mg - Labs Labs: 06/10/18 07:19 06/10/18 07:19 PT 10.7 SECONDS (9.7-12.2) 06/10/18 07:12 INR 1.0 06/10/18 07:12 APTT 46 SECONDS (21-34) H 06/10/18 07:12 - Constitutional Appears: Non-toxic - Head Exam Head Exam: NORMAL INSPECTION - Eye Exam Eye Exam: absent: Scleral icterus - Neck Exam Neck Exam: Full ROM - Respiratory Exam Respiratory Exam: NORMAL BREATHING PATTERN - Cardiovascular Exam Cardiovascular Exam: REGULAR RHYTHM - GI/Abdominal Exam GI & Abdominal Exam: Soft - Extremities Exam Extremities Exam: absent: Pedal Edema - Neurological Exam Neurological Exam: Alert, Oriented x3 Assessment and Plan - Assessment and Plan (Free Text) Assessment: Acute cholecystitis Possible Cystic duct obstruction CAD CKD stage 2 T2dm Plan: Cont abtx as per ID Pt is optimally treated from cardiac standpoint. Pt may go for GI procedures, cholecystectomy under general procedures with moderate to high risk in view of complex cardiac history. Benefit of surgery still outweighs the risk. Case discussed with Dr Boyer and Dr Gabriel and Dr Karimi.
[2018-06-11] MEDS: (Novolog) Insulin Aspart, Recombinant 100 u/ml 10 ml vial SC SCH ×4 (09:05→21:55)
[2018-06-11] MEDS ORDERED: Influenza Vaccine 60 MCG/0.5 ML SYR (3 yr & up) IM ONE (10:00)
[2018-06-11] MEDS ORDERED: Pneumococcal 23-Valent Vaccine IM ONE (10:00)
--- NOTE | 2018-06-11 13:52 | CP.PCM.PN ---
Subjective - Date & Time of Evaluation Date of Evaluation: 06/11/18 Time of Evaluation: 13:50 - Subjective Subjective: Patient denies having nausea, vomiting, abdominal pain, diarrhea. Cholecystectomy to be scheduled. Objective - Vital Signs/Intake and Output Vital Signs (last 24 hours): Temp Pulse Resp BP Pulse Ox 97.8 F 77 20 124/83 96 06/11/18 08:57 06/11/18 08:57 06/11/18 08:57 06/11/18 08:57 06/11/18 08:57 Intake and Output: 06/11/18 06/11/18 06:59 18:59 Output Total 330 Balance -330 - Medications Medications: Current Medications Allopurinol (Zyloprim) 300 mg PO DAILY [facility] Last Admin: 06/11/18 10:30 Dose: Not Given Carvedilol (Coreg) 3.125 mg PO BID [facility] Last Admin: 06/11/18 10:58 Dose: 3.125 mg Colchicine (Colocrys) 0.6 mg PO DAILY [facility] Last Admin: 06/11/18 10:29 Dose: Not Given Dextrose (Dextrose 50% Inj) 0 ml IV STAT PRN; Protocol PRN Reason: Hypoglycemia Protocol Dextrose (Glutose 15) 0 gm PO ONCE PRN; Protocol PRN Reason: Hypoglycemia Protocol Docusate Sodium (Colace) 100 mg PO BID [facility] Last Admin: 06/11/18 10:29 Dose: Not Given Furosemide (Lasix) 40 mg PO DAILY [facility] Last Admin: 06/11/18 10:29 Dose: Not Given Glucagon (Glucagen Diagnostic Kit) 0 mg IM STAT PRN; Protocol PRN Reason: Hypoglycemia Protocol Heparin Sodium (Porcine) (Heparin) 5,000 units SC Q8 [facility] Last Admin: 06/10/18 21:42 Dose: 5,000 units Dextrose (Dextrose 5% In Water 1000 Ml) 1,000 mls @ 0 mls/hr IV .Q0M PRN; Protocol PRN Reason: Hypoglycemia Protocol Insulin Aspart (Novolog) 0 unit SC ACHS [facility]; Protocol Last Admin: 06/11/18 12:30 Dose: Not Given Rosuvastatin Calcium (Crestor) 20 mg PO HS [facility] Last Admin: 06/10/18 21:43 Dose: 20 mg - Labs Labs: 06/10/18 07:19 06/10/18 07:19 PT 10.7 SECONDS (9.7-12.2) 06/10/18 07:12 INR 1.0 06/10/18 07:12 APTT 46 SECONDS (21-34) H 06/10/18 07:12 - Constitutional Appears: No Acute Distress - Head Exam Head Exam: ATRAUMATIC, NORMOCEPHALIC - Eye Exam Eye Exam: EOMI, PERRL - Neck Exam Neck Exam: absent: Lymphadenopathy, Thyromegaly - Respiratory Exam Respiratory Exam: NORMAL BREATHING PATTERN. absent: Rales, Rhonchi, Wheezes - Cardiovascular Exam Cardiovascular Exam: REGULAR RHYTHM, +S1, +S2. absent: Gallop, Rubs, Murmur - GI/Abdominal Exam GI & Abdominal Exam: Soft, Normal Bowel Sounds. absent: Tenderness, Mass, Organomegaly - Rectal Exam Rectal Exam: Deferred - Extremities Exam Extremities Exam: absent: Calf Tenderness, Pedal Edema Assessment and Plan (1) Cholelithiasis NOS Assessment & Plan: Patient is S/P cholecystostomy tube placement for acute cholecystitis. CT scan showed a stone which may be at the neck of the GB or possibly in the cystic duct. CBD is not significantly dilated. Will defer ERCP for now. Status: Acute
--- NOTE | 2018-06-11 16:17 | CARD ---
APPROVED REPORT Date of service: 06/10/2018 EKG Measurement Heart [id number] <Conclusion> Atrial-sensed ventricular-paced rhythm Abnormal ECG
--- NOTE | 2018-06-11 16:49 | CP.PCM.PN ---
Subjective - Date & Time of Evaluation Date of Evaluation: 06/11/18 Time of Evaluation: 16:46 - Subjective Subjective: Surgery PT seen and examined. No acute events. Denies fever, nuasea, pain, diarrhea, CP ,SOB. Objective - Vital Signs/Intake and Output Vital Signs (last 24 hours): Temp Pulse Resp BP Pulse Ox 97.8 F 77 20 124/83 96 06/11/18 08:57 06/11/18 08:57 06/11/18 08:57 06/11/18 08:57 06/11/18 08:57 Intake and Output: 06/11/18 06/11/18 06:59 18:59 Intake Total 350 Output Total 330 20 Balance -330 330 - Medications Medications: Current Medications Allopurinol (Zyloprim) 300 mg PO DAILY [facility] Last Admin: 06/11/18 14:44 Dose: Not Given Carvedilol (Coreg) 3.125 mg PO BID [facility] Last Admin: 06/11/18 10:58 Dose: 3.125 mg Colchicine (Colocrys) 0.6 mg PO DAILY [facility] Last Admin: 06/11/18 14:45 Dose: 0.6 mg Dextrose (Dextrose 50% Inj) 0 ml IV STAT PRN; Protocol PRN Reason: Hypoglycemia Protocol Dextrose (Glutose 15) 0 gm PO ONCE PRN; Protocol PRN Reason: Hypoglycemia Protocol Docusate Sodium (Colace) 100 mg PO BID [facility] Last Admin: 06/11/18 10:29 Dose: Not Given Furosemide (Lasix) 40 mg PO DAILY [facility] Last Admin: 06/11/18 10:29 Dose: Not Given Glucagon (Glucagen Diagnostic Kit) 0 mg IM STAT PRN; Protocol PRN Reason: Hypoglycemia Protocol Heparin Sodium (Porcine) (Heparin) 5,000 units SC Q8 [facility] Last Admin: 06/11/18 14:45 Dose: 5,000 units Dextrose (Dextrose 5% In Water 1000 Ml) 1,000 mls @ 0 mls/hr IV .Q0M PRN; Protocol PRN Reason: Hypoglycemia Protocol Insulin Aspart (Novolog) 0 unit SC ACHS [facility]; Protocol Last Admin: 06/11/18 12:30 Dose: Not Given Rosuvastatin Calcium (Crestor) 20 mg PO HS [facility] Last Admin: 06/10/18 21:43 Dose: 20 mg - Labs Labs: 06/10/18 07:19 06/10/18 07:19 PT 10.7 SECONDS (9.7-12.2) 06/10/18 07:12 INR 1.0 06/10/18 07:12 APTT 46 SECONDS (21-34) H 06/10/18 07:12 - Constitutional Appears: No Acute Distress - Head Exam Head Exam: ATRAUMATIC, NORMAL INSPECTION, NORMOCEPHALIC - Eye Exam Eye Exam: EOMI, Normal appearance, PERRL Pupil Exam: NORMAL ACCOMODATION, PERRL - ENT Exam ENT Exam: Mucous Membranes Moist, Normal Exam - Neck Exam Neck Exam: Full ROM, Normal Inspection. absent: Lymphadenopathy - Respiratory Exam Respiratory Exam: NORMAL BREATHING PATTERN - Cardiovascular Exam Cardiovascular Exam: REGULAR RHYTHM, +S1, +S2. absent: Murmur - GI/Abdominal Exam GI & Abdominal Exam: Soft, Normal Bowel Sounds. absent: Distended, Tenderness Additional comments: R drain in place. - Extremities Exam Extremities Exam: Full ROM, Normal Capillary Refill, Normal Inspection. absent: Joint Swelling, Pedal Edema - Back Exam Back Exam: NORMAL INSPECTION - Neurological Exam Neurological Exam: Alert, Awake, CN II-XII Intact, Normal Gait, Oriented x3 - Psychiatric Exam Psychiatric exam: Normal Affect, Normal Mood - Skin Skin Exam: Dry, Intact, Normal Color, Warm Assessment and Plan - Assessment and Plan (Free Text) Assessment: 73M with cholecystostomy tube placement 2.5 months ago for acute cholecystitis with many comorbidities Plan: GI : defering ERCP. Plan for OR on 06/12 for lap gill NPO after midnight Blood ready for OR PRN pain and nausea medication Subcutaneous lovenox or Heparin for anticoagulation to be held day of surgery Discussed with Dr. Boyer,
--- NOTE | 2018-06-11 19:24 | CP.PCM.PN ---
Subjective - Date & Time of Evaluation Date of Evaluation: 06/11/18 Time of Evaluation: 07:00 - Subjective Subjective: remains afeb for cholecystectomy Objective - Vital Signs/Intake and Output Vital Signs (last 24 hours): Temp Pulse Resp BP Pulse Ox 97.9 F 81 20 104/67 97 06/11/18 16:00 06/11/18 16:00 06/11/18 16:00 06/11/18 16:00 06/11/18 16:00 Intake and Output: 06/11/18 06/12/18 18:59 06:59 Intake Total 350 Output Total 20 Balance 330 - Medications Medications: Current Medications Allopurinol (Zyloprim) 300 mg PO DAILY [facility] Last Admin: 06/11/18 14:44 Dose: Not Given Carvedilol (Coreg) 3.125 mg PO BID [facility] Last Admin: 06/11/18 17:51 Dose: 3.125 mg Colchicine (Colocrys) 0.6 mg PO DAILY [facility] Last Admin: 06/11/18 14:45 Dose: 0.6 mg Dextrose (Dextrose 50% Inj) 0 ml IV STAT PRN; Protocol PRN Reason: Hypoglycemia Protocol Dextrose (Glutose 15) 0 gm PO ONCE PRN; Protocol PRN Reason: Hypoglycemia Protocol Docusate Sodium (Colace) 100 mg PO BID [facility] Last Admin: 06/11/18 17:51 Dose: 100 mg Furosemide (Lasix) 40 mg PO DAILY [facility] Last Admin: 06/11/18 10:29 Dose: Not Given Glucagon (Glucagen Diagnostic Kit) 0 mg IM STAT PRN; Protocol PRN Reason: Hypoglycemia Protocol Heparin Sodium (Porcine) (Heparin) 5,000 units SC Q8 [facility] Last Admin: 06/11/18 14:45 Dose: 5,000 units Dextrose (Dextrose 5% In Water 1000 Ml) 1,000 mls @ 0 mls/hr IV .Q0M PRN; P rotocol PRN Reason: Hypoglycemia Protocol Insulin Aspart (Novolog) 0 unit SC ACHS [facility]; Protocol Last Admin: 06/11/18 17:50 Dose: 3 unit Rosuvastatin Calcium (Crestor) 20 mg PO HS [facility] Last Admin: 06/10/18 21:43 Dose: 20 mg - Labs Labs: 06/10/18 07:19 06/10/18 07:19 PT 10.7 SECONDS (9.7-12.2) 06/10/18 07:12 INR 1.0 06/10/18 07:12 APTT 46 SECONDS (21-34) H 06/10/18 07:12 Assessment and Plan (1) Cholecystostomy care Status: Acute (2) Cholecystostomy care Status: Acute (3) Acute cholecystitis Status: Acute
[2018-06-12 07:23] LABS: BASO # 0.1 K/uL (0.0-0.2); BASO % 0.9 % (0.0-2.0); EOS # 0.3 K/uL (0.0-0.7); EOS % 5.5 % (0.0-4.0); HEMOGLOBIN 13.3 g/dL (12.0-18.0); LYMPH # 1.9 K/uL (1.0-4.3); LYMPH % 30.8 % (20.0-40.0); MEAN CELL VOLUME 88.2 fL (80.0-94.0); MEAN CORPUSCULAR HEMOGLOBIN 30.7 pg (27.0-31.0); MEAN CORPUSCULAR HGB CONC 34.8 g/dL (33.0-37.0); MEAN PLATELET VOLUME 8.8 fL (7.2-11.7); MONO # 0.7 K/uL (0.0-0.8); MONO % 11.4 % (0.0-10.0); NEUT # 3.2 K/uL (1.8-7.0); NEUT % 51.4 % (50.0-75.0); NRBC % 0.2 % (0.0-2.0); RBC 4.34 Mil/uL (4.40-5.90); WHITE BLOOD COUNT 6.2 K/uL (4.8-10.8)
[2018-06-12 07:31] LABS: INR 0.9; PROTHROMBIN TIME 10.1 SECONDS (9.7-12.2)
[2018-06-12 07:52] LABS: ALB/GLOB RATIO 1.2 (1.0-2.1); ALBUMIN 3.8 g/dL (3.5-5.0); CALCIUM 9.3 mg/dl (8.6-10.4)
[2018-06-12] MEDS: (Novolog) Insulin Aspart, Recombinant 100 u/ml 10 ml vial SC SCH ×5 (08:30→22:27)
[2018-06-12] MEDS ORDERED: ceFAZolin IV 1 gm in Dextrose 2 GM/100 ML BAG IVPB ONE (09:37)
[2018-06-12] MEDS ORDERED: Iohexol 240 (50 ml) ONE (09:37)
[2018-06-12] MEDS ORDERED: Midazolam 2 MG/2 ML VIAL ONE (09:44)
--- NOTE | 2018-06-12 12:55 | PCM.SURG1 ---
Surgeon's Initial Post Op Note - Surgeon's Notes Surgeon: Rosalind Statistical Clerk Advertising: [id number] Type of Anesthesia: General Endo, Local Pre-Operative Diagnosis: Chronic Cholecystitis, cholecystostomy tube Operative Findings: Chronic Cholecystitis, cholecystostomy tube, mild inflammation, adhesions Post-Operative Diagnosis: Chronic Cholecystitis, cholecystostomy tube Operation Performed: Laparoscopic cholecystectomy Specimen/Specimens Removed: gallbladder Estimated Blood Loss: EBL {In ML}: 200 Blood Products Given: N/A Drains Used: No Drains Post-Op Condition: Good Date of Surgery/Procedure: 06/12/18 Time of Surgery/Procedure: 09:52
[2018-06-12] MEDS ORDERED: Oxycodone/Acetaminophen 5/325 mg Tab PO PRN (12:59)
[2018-06-12] MEDS ORDERED: Lactated Ringer's 1,000 ML IV ONE ×2 (15:56)
--- NOTE | 2018-06-12 22:39 | CP.PCM.PCO ---
Physician Communication Note - Physician Communication Note Physician Communication Note: Concerned for blood loss but pt refusing postop blood draw.
--- NOTE | 2018-06-12 23:48 | OP ---
PROCEDURE DATE: 06/12/2018 PREOPERATIVE DIAGNOSES: Cholecystitis, cholelithiasis. PROCEDURES CARRIED OUT: Laparoscopic cholecystectomy; attempted cholangiogram, no cholangiogram was carried out. SURGEON: Trenton Boyer Jr., MD FINANCIAL SERVICES CONSULTANT: Michael Copeland DO ANESTHESIOLOGIST: Sonya INDICATION FOR PROCEDURE: The patient is a 73-year-old man with a history of heart surgery in the past, pacemaker, etc. who presents with an indwelling cholecystostomy tube from previous cholecystectomy. PREOPERATIVE FINDINGS: The patient had a stone impacted in the cystic duct neck. OPERATIVE FINDINGS: 1. The gallbladder was inflamed. 2. There was omentum wrapped over. 3. We removed the cholecystostomy tube. 4. We were unable to carry out cholangiogram due to the small size of the cystic duct. The rest of the intraoperative findings are remarkable. BLOOD LOSS FOR THE PROCEDURE: Approximately 150 mL primarily due to oozing of liver bed and originally remains on antiplatelet agents. DESCRIPTION OF PROCEDURE: The patient was given general anesthesia and intravenous antibiotics. Venodyne boots were applied. A Heydi trocar was inserted by a cut-down technique. Two additional trocars were placed. Cystic duct and cystic artery were identified. Liver bed identified. Cholangiogram carried out as mentioned above. Cholangiogram was attempted as mentioned above. We were unable to fit the catheter into the cystic duct. Multiple attempts were made at this. We then abandoned this. We clipped the cystic duct, clipped the cystic artery. We removed the gallbladder from the field. Much bleeding from the liver bed primarily due to ooze rather than any punctate bleeding points. After this was controlled, we then closed the umbilicus. We then took a second look. There was a fair amount of blood accumulating in the liver bed, which required us to re-explore this area. However, there was no identifiable source. No bleeding vessels etc. We then irrigated this out again. We closed the skin puncture site at the umbilicus. We closed the skin with a subcuticular closure. Blood loss for the procedure was as mentioned. Operation carried out was laparoscopic cholecystectomy with attempted cholangiogram. The operation was more difficult due to indwelling tube and bleeding in the liver bed. Trenton Boyer Jr., MD
[2018-06-13 01:28] VITALS: RESP 20
[2018-06-13 06:49] LABS: HEMOGLOBIN 12.9 g/dL (12.0-18.0); MEAN CELL VOLUME 87.9 fL (80.0-94.0); MEAN CORPUSCULAR HGB CONC 34.1 g/dL (33.0-37.0); RBC 4.32 Mil/uL (4.40-5.90); RED CELL DISTRIBUTION WIDTH 14.2 % (11.5-14.5); WHITE BLOOD COUNT 9.3 K/uL (4.8-10.8)
[2018-06-13 07:05] LABS: ALB/GLOB RATIO 1.3 (1.0-2.1); ALBUMIN 3.7 g/dL (3.5-5.0); CALCIUM 9.1 mg/dl (8.6-10.4)
--- NOTE | 2018-06-13 08:05 | CP.PCM.PN ---
Subjective - Date & Time of Evaluation Date of Evaluation: 06/13/18 Time of Evaluation: 08:00 - Subjective Subjective: General Surgery: Dr Boyer Pt S&E. POD#1 s/p lap gill. Pt was refusing blood draws yesterday, but was able to provide specimen this morning. HgB stable at 12.9. Tolerating liquids. Denies any N/V, F/C, SOB or chest pain. His abdominal pain is well controlled. Has not yet been OOB. Using incentive spirometer. Objective - Vital Signs/Intake and Output Vital Signs (last 24 hours): Temp Pulse Resp BP Pulse Ox 99.7 F H 67 20 114/60 94 L 06/13/18 06:14 06/13/18 00:00 06/13/18 00:00 06/13/18 00:00 06/13/18 00:00 Intake and Output: 06/13/18 06/13/18 06:59 18:59 Intake Total 510 Output Total 600 Balance -90 - Medications Medications: Current Medications Allopurinol (Zyloprim) 300 mg PO DAILY [facility] Last Admin: 06/12/18 10:13 Dose: Not Given Carvedilol (Coreg) 3.125 mg PO BID [facility] Last Admin: 06/12/18 18:25 Dose: 3.125 mg Colchicine (Colocrys) 0.6 mg PO DAILY [facility] Last Admin: 06/12/18 10:13 Dose: Not Given Dextrose (Dextrose 50% Inj) 0 ml IV STAT PRN; Protocol PRN Reason: Hypoglycemia Protocol Dextrose (Glutose 15) 0 gm PO ONCE PRN; Protocol PRN Reason: Hypoglycemia Protocol Docusate Sodium (Colace) 100 mg PO BID [facility] Last Admin: 06/12/18 18:25 Dose: 100 mg Furosemide (Lasix) 40 mg PO DAILY [facility] Last Admin: 06/12/18 10:13 Dose: Not Given Glucagon (Glucagen Diagnostic Kit) 0 mg IM STAT PRN; Protocol PRN Reason: Hypoglycemia Protocol Insulin Aspart (Novolog) 0 unit SC [facility]; Protocol Last Admin: 06/12/18 22:27 Dose: Not Given Morphine Sulfate (Morphine) 2 mg IVP Q4 PRN PRN Reason: Pain, severe (8-10) Ondansetron HCl (Zofran Inj) 4 mg IV Q4 PRN PRN Reason: Nausea/Vomiting Oxycodone/Acetaminophen (Percocet 5/325 Mg Tab) 1 tab PO Q4H PRN PRN Reason: Pain, moderate (4-7) Stop: 06/15/18 13:00 Last Admin: 06/12/18 18:25 Dose: 1 tab Rosuvastatin Calcium (Crestor) 20 mg PO HS [facility] Last Admin: 06/12/18 22:23 Dose: 20 mg - Labs Labs: 06/13/18 06:41 06/13/18 06:41 PT 10.1 SECONDS (9.7-12.2) 06/12/18 07:07 INR 0.9 06/12/18 07:07 APTT 49 SECONDS (21-34) H 06/12/18 07:07 - Constitutional Appears: Non-toxic, No Acute Distress - ENT Exam ENT Exam: Mucous Membranes Dry - Respiratory Exam Respiratory Exam: absent: Accessory Muscle Use, Respiratory Distress - Cardiovascular Exam Cardiovascular Exam: REGULAR RHYTHM. absent: Tachycardia - GI/Abdominal Exam GI & Abdominal Exam: Soft, Tenderness (post-op). absent: Distended Additional comments: incisions c/d/i - Neurological Exam Neurological Exam: Alert, Awake, Oriented x3 - Psychiatric Exam Psychiatric exam: Normal Affect - Skin Skin Exam: Normal Color, Warm Assessment and Plan - Assessment and Plan (Free Text) Assessment: 73M POD#1 s/p lap gill Plan: will adv diet OOB and ambulate pain control incentive spirometer possible d/c later today vs tomorrow will d/w Dr Rosalind Reina, PGY4
[2018-06-13] MEDS: (Novolog) Insulin Aspart, Recombinant 100 u/ml 10 ml vial SC SCH ×4 (08:35→21:14)
--- NOTE | 2018-06-13 18:23 | CP.PCM.PN ---
Subjective - Date & Time of Evaluation Date of Evaluation: 06/13/18 Time of Evaluation: 07:00 - Subjective Subjective: weak but nad denies chest pain cough or abd pain c/o sore throat Objective - Vital Signs/Intake and Output Vital Signs (last 24 hours): Temp Pulse Resp BP Pulse Ox 98.1 F 82 20 106/63 97 06/13/18 16:00 06/13/18 16:00 06/13/18 16:00 06/13/18 16:00 06/13/18 16:00 Intake and Output: 06/13/18 06/13/18 06:59 18:59 Intake Total 510 600 Output Total 600 Balance -90 600 - Medications Medications: Current Medications Allopurinol (Zyloprim) 300 mg PO DAILY [facility] Last Admin: 06/13/18 09:34 Dose: 300 mg Carvedilol (Coreg) 3.125 mg PO BID [facility] Last Admin: 06/13/18 09:42 Dose: Not Given Colchicine (Colocrys) 0.6 mg PO DAILY [facility] Last Admin: 06/13/18 09:35 Dose: 0.6 mg Dextrose (Dextrose 50% Inj) 0 ml IV STAT PRN; Protocol PRN Reason: Hypoglycemia Protocol Dextrose (Glutose 15) 0 gm PO ONCE PRN; Protocol PRN Reason: Hypoglycemia Protocol Docusate Sodium (Colace) 100 mg PO BID [facility] Last Admin: 06/13/18 17:33 Dose: 100 mg Furosemide (Lasix) 40 mg PO DAILY [facility] Last Admin: 06/13/18 09:41 Dose: Not Given Glucagon (Glucagen Diagnostic Kit) 0 mg IM STAT PRN; Protocol PRN Reason: Hypoglycemia Protocol Ceftriaxone Sodium 1 gm/ (Sodium Chloride) 100 mls @ 100 mls/hr IVPB DAILY [facility]; Protocol Insulin Aspart (Novolog) 0 unit SC ACHS [facility]; Protocol Last Admin: 06/13/18 12:07 Dose: 3 unit Morphine Sulfate (Morphine) 2 mg IVP Q4 PRN PRN Reason: Pain, severe (8-10) Ondansetron HCl (Zofran Inj) 4 mg IV Q4 PRN PRN Reason: Nausea/Vomiting Oxycodone/Acetaminophen (Percocet 5/325 Mg Tab) 1 tab PO Q4H PRN PRN Reason: Pain, moderate (4-7) Stop: 06/15/18 13:00 Last Admin: 06/12/18 18:25 Dose: 1 tab Rosuvastatin Calcium (Crestor) 20 mg PO HS [facility] Last Admin: 06/12/18 22:23 Dose: 20 mg - Labs Labs: 06/13/18 06:41 06/13/18 06:41 PT 10.1 SECONDS (9.7-12.2) 06/12/18 07:07 INR 0.9 06/12/18 07:07 APTT 49 SECONDS (21-34) H 06/12/18 07:07 - Constitutional Appears: Non-toxic, Chronically Ill - Head Exam Head Exam: NORMOCEPHALIC - Eye Exam Eye Exam: PERRL - ENT Exam ENT Exam: Mucous Membranes Dry - Neck Exam Neck Exam: absent: Lymphadenopathy - Respiratory Exam Respiratory Exam: Decreased Breath Sounds - Cardiovascular Exam Cardiovascular Exam: REGULAR RHYTHM - GI/Abdominal Exam GI & Abdominal Exam: Distended, Soft, Tenderness - Rectal Exam Rectal Exam: Deferred - Exam Exam: NORMAL INSPECTION - Extremities Exam Extremities Exam: absent: Pedal Edema - Back Exam Back Exam: absent: CVA tenderness (L), CVA tenderness (R) - Neurological Exam Neurological Exam: Alert, Awake, Oriented x3 Neuro motor strength exam: Left Upper Extremity: 3, Right Upper Extremity: 3, Left Lower Extremity: 3, Right Lower Extremity: 3 - Psychiatric Exam Psychiatric exam: Depressed - Skin Skin Exam: Dry Assessment and Plan (1) Cholecystostomy care Status: Acute (2) Cholecystostomy care Status: Acute (3) Acute cholecystitis Status: Acute - Assessment and Plan (Free Text) Assessment: cont rx as per dr Combs needs PT/OT GILL
[2018-06-13] MEDS: Amoxicillin-Clav 875-125 mg Tab PO SCH (21:14)
[2018-06-14] MEDS: (Novolog) Insulin Aspart, Recombinant 100 u/ml 10 ml vial SC SCH ×3 (08:30→17:31)
--- NOTE | 2018-06-14 10:03 | CP.PCM.PN ---
Subjective - Date & Time of Evaluation Date of Evaluation: 06/12/18 Time of Evaluation: 18:00 - Subjective Subjective: s/p cholecystectomy no complication Objective - Vital Signs/Intake and Output Vital Signs (last 24 hours): Temp Pulse Resp BP Pulse Ox 98.7 F 88 20 101/65 97 06/14/18 07:48 06/14/18 07:48 06/14/18 07:48 06/14/18 07:48 06/14/18 07:48 Intake and Output: 06/14/18 06/14/18 06:59 18:59 Intake Total 200 Balance 200 - Medications Medications: Current Medications Allopurinol (Zyloprim) 300 mg PO DAILY [facility] Last Admin: 06/13/18 09:34 Dose: 300 mg Amoxicillin/Clavulanate Potassium (Augmentin 875 Mg-125 Mg Tab) 1 tab PO BID [facility]; Protocol Last Admin: 06/13/18 21:14 Dose: 1 tab Carvedilol (Coreg) 3.125 mg PO BID [facility] Last Admin: 06/13/18 21:14 Dose: 3.125 mg Colchicine (Colocrys) 0.6 mg PO DAILY [facility] Last Admin: 06/13/18 09:35 Dose: 0.6 mg Dextrose (Dextrose 50% Inj) 0 ml IV STAT PRN; Protocol PRN Reason: Hypoglycemia Protocol Dextrose (Glutose 15) 0 gm PO ONCE PRN; Protocol PRN Reason: Hypoglycemia Protocol Docusate Sodium (Colace) 100 mg PO BID [facility] Last Admin: 06/13/18 17:33 Dose: 100 mg Furosemide (Lasix) 40 mg PO DAILY [facility] Last Admin: 06/13/18 09:41 Dose: Not Given Glucagon (Glucagen Diagnostic Kit) 0 mg IM STAT PRN; Protocol PRN Reason: Hypoglycemia Protocol Insulin Aspart (Novolog) 0 unit SC [facility]; Protocol Last Admin: 06/14/18 08:30 Dose: 2 unit Morphine Sulfate (Morphine) 2 mg IVP Q4 PRN PRN Reason: Pain, severe (8-10) Ondansetron HCl (Zofran Inj) 4 mg IV Q4 PRN PRN Reason: Nausea/Vomiting Oxycodone/Acetaminophen (Percocet 5/325 Mg Tab) 1 tab PO Q4H PRN PRN Reason: Pain, moderate (4-7) Stop: 06/15/18 13:00 Last Admin: 06/12/18 18:25 Dose: 1 tab Rosuvastatin Calcium (Crestor) 20 mg PO HS [facility] Last Admin: 06/13/18 21:14 Dose: 20 mg Tamsulosin HCl (Flomax) 0.4 mg PO DAILY [facility] - Labs Labs: 06/13/18 06:41 06/13/18 06:41 PT 10.1 SECONDS (9.7-12.2) 06/12/18 07:07 INR 0.9 06/12/18 07:07 APTT 49 SECONDS (21-34) H 06/12/18 07:07 - Constitutional Appears: Non-toxic - Eye Exam Eye Exam: absent: Scleral icterus - Neck Exam Neck Exam: Full ROM - Respiratory Exam Respiratory Exam: NORMAL BREATHING PATTERN - Cardiovascular Exam Cardiovascular Exam: REGULAR RHYTHM - GI/Abdominal Exam GI & Abdominal Exam: Soft Additional comments: +TENDERNESS AT SURGICAL SITE - Extremities Exam Extremities Exam: absent: Pedal Edema - Neurological Exam Neurological Exam: Alert, Oriented x3 Assessment and Plan - Assessment and Plan (Free Text) Assessment: s/p Cholecystectomy CAD T2dm HTN Plan: Cont post-op care Resume antiplatelet when ok with Dr Boyer
--- NOTE | 2018-06-14 10:08 | CP.PCM.PN ---
Subjective - Date & Time of Evaluation Date of Evaluation: 06/13/18 Time of Evaluation: 08:00 - Subjective Subjective: NAD no chest pain c/o sore throat - ET tube induced? Objective - Vital Signs/Intake and Output Vital Signs (last 24 hours): Temp Pulse Resp BP Pulse Ox 98.7 F 88 20 101/65 97 06/14/18 07:48 06/14/18 07:48 06/14/18 07:48 06/14/18 07:48 06/14/18 07:48 Intake and Output: 06/14/18 06/14/18 06:59 18:59 Intake Total 200 Balance 200 - Medications Medications: Current Medications Allopurinol (Zyloprim) 300 mg PO DAILY [facility] Last Admin: 06/13/18 09:34 Dose: 300 mg Amoxicillin/Clavulanate Potassium (Augmentin 875 Mg-125 Mg Tab) 1 tab PO BID [facility]; Protocol Last Admin: 06/13/18 21:14 Dose: 1 tab Carvedilol (Coreg) 3.125 mg PO BID [facility] Last Admin: 06/13/18 21:14 Dose: 3.125 mg Colchicine (Colocrys) 0.6 mg PO DAILY [facility] Last Admin: 06/13/18 09:35 Dose: 0.6 mg Dextrose (Dextrose 50% Inj) 0 ml IV STAT PRN; Protocol PRN Reason: Hypoglycemia Protocol Dextrose (Glutose 15) 0 gm PO ONCE PRN; Protocol PRN Reason: Hypoglycemia Protocol Docusate Sodium (Colace) 100 mg PO BID [facility] Last Admin: 06/13/18 17:33 Dose: 100 mg Furosemide (Lasix) 40 mg PO DAILY [facility] Last Admin: 06/13/18 09:41 Dose: Not Given Glucagon (Glucagen Diagnostic Kit) 0 mg IM STAT PRN; Protocol PRN Reason: Hypoglycemia Protocol Insulin Aspart (Novolog) 0 unit SC [facility]; Protocol Last Admin: 06/14/18 08:30 Dose: 2 unit Morphine Sulfate (Morphine) 2 mg IVP Q4 PRN PRN Reason: Pain, severe (8-10) Ondansetron HCl (Zofran Inj) 4 mg IV Q4 PRN PRN Reason: Nausea/Vomiting Oxycodone/Acetaminophen (Percocet 5/325 Mg Tab) 1 tab PO Q4H PRN PRN Reason: Pain, moderate (4-7) Stop: 06/15/18 13:00 Last Admin: 06/12/18 18:25 Dose: 1 tab Rosuvastatin Calcium (Crestor) 20 mg PO HS [facility] Last Admin: 06/13/18 21:14 Dose: 20 mg Tamsulosin HCl (Flomax) 0.4 mg PO DAILY [facility] - Labs Labs: 06/13/18 06:41 06/13/18 06:41 PT 10.1 SECONDS (9.7-12.2) 06/12/18 07:07 INR 0.9 06/12/18 07:07 APTT 49 SECONDS (21-34) H 06/12/18 07:07 - Constitutional Appears: No Acute Distress - Head Exam Head Exam: ATRAUMATIC - Eye Exam Eye Exam: absent: Scleral icterus - Neck Exam Neck Exam: Full ROM - Respiratory Exam Respiratory Exam: NORMAL BREATHING PATTERN - Cardiovascular Exam Cardiovascular Exam: REGULAR RHYTHM - GI/Abdominal Exam GI & Abdominal Exam: Soft - Extremities Exam Extremities Exam: absent: Pedal Edema - Neurological Exam Neurological Exam: Altered Assessment and Plan - Assessment and Plan (Free Text) Assessment: s/p Cholecystectomy CAD T2dm Plan: Cont post-op care Case discussed with Dr Gabriel and Dr Boyer
--- NOTE | 2018-06-14 10:14 | CP.PCM.PN ---
Subjective - Date & Time of Evaluation Date of Evaluation: 06/11/18 Time of Evaluation: 09:00 - Subjective Subjective: seen by Dr Gomez - no ERCP Discussed with Dr Boyer Pt will be scheduled for cholecystectomy tomorrow Objective - Vital Signs/Intake and Output Vital Signs (last 24 hours): Temp Pulse Resp BP Pulse Ox 98.7 F 88 20 101/65 97 06/14/18 07:48 06/14/18 07:48 06/14/18 07:48 06/14/18 07:48 06/14/18 07:48 Intake and Output: 06/14/18 06/14/18 06:59 18:59 Intake Total 200 Balance 200 - Medications Medications: Current Medications Allopurinol (Zyloprim) 300 mg PO DAILY [facility] Last Admin: 06/13/18 09:34 Dose: 300 mg Amoxicillin/Clavulanate Potassium (Augmentin 875 Mg-125 Mg Tab) 1 tab PO BID [facility]; Protocol Last Admin: 06/13/18 21:14 Dose: 1 tab Carvedilol (Coreg) 3.125 mg PO BID [facility] Last Admin: 06/13/18 21:14 Dose: 3.125 mg Colchicine (Colocrys) 0.6 mg PO DAILY [facility] Last Admin: 06/13/18 09:35 Dose: 0.6 mg Dextrose (Dextrose 50% Inj) 0 ml IV STAT PRN; Protocol PRN Reason: Hypoglycemia Protocol Dextrose (Glutose 15) 0 gm PO ONCE PRN; Protocol PRN Reason: Hypoglycemia Protocol Docusate Sodium (Colace) 100 mg PO BID [facility] Last Admin: 06/13/18 17:33 Dose: 100 mg Furosemide (Lasix) 40 mg PO DAILY [facility] Last Admin: 06/13/18 09:41 Dose: Not Given Glucagon (Glucagen Diagnostic Kit) 0 mg IM STAT PRN; Protocol PRN Reason: Hypoglycemia Protocol Insulin Aspart (Novolog) 0 unit SC ACHS [facility]; Protocol Last Admin: 06/14/18 08:30 Dose: 2 unit Morphine Sulfate (Morphine) 2 mg IVP Q4 PRN PRN Reason: Pain, severe (8-10) Ondansetron HCl (Zofran Inj) 4 mg IV Q4 PRN PRN Reason: Nausea/Vomiting Oxycodone/Acetaminophen (Percocet 5/325 Mg Tab) 1 tab PO Q4H PRN PRN Reason: Pain, moderate (4-7) Stop: 06/15/18 13:00 Last Admin: 06/12/18 18:25 Dose: 1 tab Rosuvastatin Calcium (Crestor) 20 mg PO HS [facility] Last Admin: 06/13/18 21:14 Dose: 20 mg Tamsulosin HCl (Flomax) 0.4 mg PO DAILY [facility] - Labs Labs: 06/13/18 06:41 06/13/18 06:41 PT 10.1 SECONDS (9.7-12.2) 06/12/18 07:07 INR 0.9 06/12/18 07:07 APTT 49 SECONDS (21-34) H 06/12/18 07:07 - Constitutional Appears: Non-toxic - Head Exam Head Exam: NORMOCEPHALIC - Eye Exam Eye Exam: absent: Scleral icterus Pupil Exam: PERRL - ENT Exam ENT Exam: Mucous Membranes Dry - Neck Exam Neck Exam: absent: Full ROM - Respiratory Exam Respiratory Exam: NORMAL BREATHING PATTERN - GI/Abdominal Exam GI & Abdominal Exam: Soft - Extremities Exam Extremities Exam: absent: Pedal Edema Assessment and Plan - Assessment and Plan (Free Text) Assessment: Acute cholecystitis CAD T2dm PVD Plan: Medically clear for cholecystectomy in AM
[2018-06-14] MEDS: Amoxicillin-Clav 875-125 mg Tab PO SCH ×2 (10:24→17:30)
--- NOTE | 2018-06-14 15:09 | CP.PCM.PN ---
Subjective - Date & Time of Evaluation Date of Evaluation: 06/14/18 Time of Evaluation: 15:04 - Subjective Subjective: Surgery Pt seen and examined w Dr. Jacob. NO acute events. Denies fever, nausea, vomiting. Ambulating. Tolerating diet. Objective - Vital Signs/Intake and Output Vital Signs (last 24 hours): Temp Pulse Resp BP Pulse Ox 98.8 F 83 20 103/66 97 06/14/18 13:53 06/14/18 13:53 06/14/18 13:53 06/14/18 13:53 06/14/18 13:53 Intake and Output: 06/14/18 06/14/18 06:59 18:59 Intake Total 200 480 Balance 200 480 - Medications Medications: Current Medications Allopurinol (Zyloprim) 300 mg PO DAILY [facility] Last Admin: 06/14/18 10:23 Dose: 300 mg Amoxicillin/Clavulanate Potassium (Augmentin 875 Mg-125 Mg Tab) 1 tab PO BID [facility]; Protocol Last Admin: 06/14/18 10:24 Dose: 1 tab Aspirin (Ecotrin) 81 mg PO DAILY [facility] Carvedilol (Coreg) 3.125 mg PO BID [facility] Last Admin: 06/14/18 10:28 Dose: Not Given Clopidogrel Bisulfate (Plavix) 75 mg PO DAILY [facility] Colchicine (Colocrys) 0.6 mg PO DAILY [facility] Last Admin: 06/14/18 10:24 Dose: 0.6 mg Dextrose (Dextrose 50% Inj) 0 ml IV STAT PRN; Protocol PRN Reason: Hypoglycemia Protocol Dextrose (Glutose 15) 0 gm PO ONCE PRN; Protocol PRN Reason: Hypoglycemia Protocol Docusate Sodium (Colace) 100 mg PO BID [facility] Last Admin: 06/14/18 10:23 Dose: 100 mg Furosemide (Lasix) 40 mg PO DAILY [facility] Last Admin: 06/14/18 10:23 Dose: 40 mg Glucagon (Glucagen Diagnostic Kit) 0 mg IM STAT PRN; Protocol PRN Reason: Hypoglycemia Protocol Insulin Aspart (Novolog) 0 unit SC [facility]; Protocol Last Admin: 06/14/18 12:30 Dose: 3 unit Morphine Sulfate (Morphine) 2 mg IVP Q4 PRN PRN Reason: Pain, severe (8-10) Ondansetron HCl (Zofran Inj) 4 mg IV Q4 PRN PRN Reason: Nausea/Vomiting Oxycodone/Acetaminophen (Percocet 5/325 Mg Tab) 1 tab PO Q4H PRN PRN Reason: Pain, moderate (4-7) Stop: 06/15/18 13:00 Last Admin: 06/12/18 18:25 Dose: 1 tab Rosuvastatin Calcium (Crestor) 20 mg PO HS [facility] Last Admin: 06/13/18 21:14 Dose: 20 mg Tamsulosin HCl (Flomax) 0.4 mg PO DAILY [facility] Last Admin: 06/14/18 10:24 Dose: 0.4 mg - Labs Labs: 06/13/18 06:41 06/13/18 06:41 PT 10.1 SECONDS (9.7-12.2) 06/12/18 07:07 INR 0.9 06/12/18 07:07 APTT 49 SECONDS (21-34) H 06/12/18 07:07 - Constitutional Appears: No Acute Distress - Head Exam Head Exam: ATRAUMATIC, NORMAL INSPECTION, NORMOCEPHALIC - Eye Exam Eye Exam: EOMI, Normal appearance, PERRL Pupil Exam: NORMAL ACCOMODATION, PERRL - ENT Exam ENT Exam: Mucous Membranes Moist, Normal Exam - Neck Exam Neck Exam: Full ROM, Normal Inspection. absent: Lymphadenopathy - Respiratory Exam Respiratory Exam: NORMAL BREATHING PATTERN - Cardiovascular Exam Cardiovascular Exam: REGULAR RHYTHM - GI/Abdominal Exam GI & Abdominal Exam: Soft. absent: Tenderness Additional comments: Incision C/D/I - Extremities Exam Extremities Exam: Full ROM, Normal Inspection. absent: Joint Swelling, Pedal Edema - Back Exam Back Exam: NORMAL INSPECTION - Neurological Exam Neurological Exam: Alert, Awake, CN II-XII Intact, Normal Gait, Oriented x3 - Psychiatric Exam Psychiatric exam: Normal Affect, Normal Mood - Skin Skin Exam: Dry, Intact, Normal Color, Warm Assessment and Plan - Assessment and Plan (Free Text) Assessment: 73M POD#2 s/p lap gill Plan: Advance diet as tolerated. OK to DC for surgical standpoint Follow up at Dr. Jacob's office in 1 -2 weeks No heavy lifitng OK to shower OOB and ambulate pain control incentive spirometer d/w Dr Jacob
[2018-06-14 16:50] VITALS: BP 112/71; PULSE 84; TEMP 98.3; O2SAT 96
--- NOTE | 2018-06-14 21:54 | CP.PCM.PN ---
Subjective - Date & Time of Evaluation Date of Evaluation: 06/14/18 Time of Evaluation: 11:00 - Subjective Subjective: feeling ok ambulating with No chest pain Objective - Vital Signs/Intake and Output Vital Signs (last 24 hours): Temp Pulse Resp BP Pulse Ox 98.3 F 84 20 112/71 96 06/14/18 16:49 06/14/18 16:49 06/14/18 16:49 06/14/18 16:49 06/14/18 16:49 Intake and Output: 06/14/18 06/15/18 18:59 06:59 Intake Total 480 Balance 480 - Labs Labs: 06/13/18 06:41 06/13/18 06:41 PT 10.1 SECONDS (9.7-12.2) 06/12/18 07:07 INR 0.9 06/12/18 07:07 APTT 49 SECONDS (21-34) H 06/12/18 07:07 - Constitutional Appears: Non-toxic - Head Exam Head Exam: NORMAL INSPECTION - Eye Exam Eye Exam: absent: Scleral icterus - ENT Exam ENT Exam: Mucous Membranes Moist - Neck Exam Neck Exam: Full ROM - Respiratory Exam Respiratory Exam: NORMAL BREATHING PATTERN - Cardiovascular Exam Cardiovascular Exam: REGULAR RHYTHM - GI/Abdominal Exam GI & Abdominal Exam: Normal Bowel Sounds - Neurological Exam Neurological Exam: Alert, Oriented x3 Assessment and Plan - Assessment and Plan (Free Text) Assessment: Acute cholecystitis- s/p chelecystectomy CAD PVD T2dm Plan: Ok for D Resume antiplatelets F/u in the office in 5 days
--- NOTE | 2018-06-14 22:02 | CP.PCM.DIS ---
Provider - Provider Date of Admission: 06/11/18 16:20 Attending physician: Barbra Combs MD Primary care physician: Dr Barbra Combs Consults: Surgery Dr Rosalind Gabriel Time Spent in preparation of Discharge (in minutes): 35 Diagnosis - Discharge Diagnosis (1) Coronary artery disease Status: Resolved (2) Diabetes mellitus type 2 in nonobese Status: Chronic (3) Hypertension Status: Chronic (4) CKD (chronic kidney disease) stage 3, GFR 30-59 ml/min Status: Chronic Hospital Course - Lab Results Lab Results: Most Recent Lab Values WBC 9.3 K/uL (4.8-10.8) 06/13/18 06:41 RBC 4.32 Mil/uL (4.40-5.90) L 06/13/18 06:41 Hgb 12.9 g/dL (12.0-18.0) 06/13/18 06:41 Hct 38.0 % (35.0-51.0) 06/13/18 06:41 MCV 87.9 fL (80.0-94.0) 06/13/18 06:41 MCH 30.0 pg (27.0-31.0) 06/13/18 06:41 MCHC 34.1 g/dL (33.0-37.0) 06/13/18 06:41 RDW 14.2 % (11.5-14.5) 06/13/18 06:41 Plt Count 143 K/uL (130-400) 06/13/18 06:41 MPV 9.0 fL (7.2-11.7) 06/13/18 06:41 Neut % (Auto) 51.4 % (50.0-75.0) 06/12/18 07:07 Lymph % (Auto) 30.8 % (20.0-40.0) 06/12/18 07:07 Jenkins % (Auto) 11.4 % (0.0-10.0) H 06/12/18 07:07 Eos % (Auto) 5.5 % (0.0-4.0) H 06/12/18 07:07 Baso % (Auto) 0.9 % (0.0-2.0) 06/12/18 07:07 Neut # (Auto) 3.2 K/uL (1.8-7.0) 06/12/18 07:07 Lymph # (Auto) 1.9 K/uL (1.0-4.3) 06/12/18 07:07 Jenkins # (Auto) 0.7 K/uL (0.0-0.8) 06/12/18 07:07 Eos # (Auto) 0.3 K/uL (0.0-0.7) 06/12/18 07:07 Baso # (Auto) 0.1 K/uL (0.0-0.2) 06/12/18 07:07 PT 10.1 SECONDS (9.7-12.2) 06/12/18 07:07 INR 0.9 06/12/18 07:07 APTT 49 SECONDS (21-34) H 06/12/18 07:07 Sodium 138 mmol/L (132-148) 06/13/18 06:41 Potassium 4.2 mmol/L (3.6-5.2) 06/13/18 06:41 Chloride 102 mmol/L (98-107) 06/13/18 06:41 Carbon Dioxide 22 mmol/L (22-30) 06/13/18 06:41 Anion Gap 18 (10-20) 06/13/18 06:41 BUN 22 mg/dL (9-20) H 06/13/18 06:41 Creatinine 1.4 mg/dL (0.8-1.5) 06/13/18 06:41 Est GFR ( Amer) 60 06/13/18 06:41 Est GFR (Non-Af Amer) 50 06/13/18 06:41 POC Glucose (mg/dL) 221 mg/dL (65-110) H 06/14/18 16:49 Random Glucose 191 mg/dL (75-110) H 06/13/18 06:41 Calcium 9.1 mg/dl (8.6-10.4) 06/13/18 06:41 Total Bilirubin 1.1 mg/dL (0.2-1.3) 06/13/18 06:41 AST 74 U/L (17-59) H D 06/13/18 06:41 ALT 57 U/L (21-72) 06/13/18 06:41 Alkaline Phosphatase 54 U/L (38-126) 06/13/18 06:41 Total Protein 6.5 g/dL (6.3-8.3) 06/13/18 06:41 Albumin 3.7 g/dL (3.5-5.0) 06/13/18 06:41 Globulin 2.8 gm/dL (2.2-3.9) 06/13/18 06:41 Albumin/Globulin Ratio 1.3 (1.0-2.1) 06/13/18 06:41 Blood Type B POSITIVE 06/12/18 07:07 Blood Type Confirm B POSITIVE 06/12/18 07:07 Antibody Screen Negative 06/12/18 07:07 - Hospital Course Hospital Course: Patient underwent cholecystectomy with Dr Boyer without complications. Dr Gomez evaluated pt prior to surgery. No ERCP needed. Dr Gabriel started pt with antibiotic. Antiplatelet were held and pt was bridged with SQ heparin. Discharge Exam - Head Exam Head Exam: ATRAUMATIC - Eye Exam Eye Exam: absent: Scleral icterus - ENT Exam ENT Exam: Mucous Membranes Moist - Neck Exam Neck exam: Full Rom - Respiratory Exam Respiratory Exam: NORMAL BREATHING PATTERN - Cardiovascular Exam Cardiovascular Exam: REGULAR RHYTHM - GI/Abdominal Exam GI & Abdominal Exam: Soft - Extremities Exam Extremities exam: pedal edema - Neurological Exam Neurological exam: Alert, Oriented x3 Discharge Plan - Follow Up Plan Condition: STABLE Disposition: HOME/ ROUTINE Instructions: Cholecystitis (DC), Cholecystitis (GEN)
== END 2018-06-14 20:56 | disposition home or self-care (01) | DRG 419 ==
LOC: C.3T 09:52 → C.ER 09:52 → C.SDS 11:18 → C.9S 11:19 → C.9E 12:27 → C.3T 14:53 → OBSVTOIN 06-11 16:20
PROVIDERS: ADMIT Internal Medicine; ATTEND Internal Medicine
PROC: 0FP4X0Z Removal of Drainage Device from Gallbladder, External Approach (ICD-10-PCS; 2018-06-12)
PROC: 0FT44ZZ Resection of Gallbladder, Percutaneous Endoscopic Approach (ICD-10-PCS; principal; 2018-06-12 13:30)
DX: K80.66 Calculus of gallbladder and bile duct with acute and chronic cholecystitis without obstruction (principal); I12.9 Hypertensive chronic kidney disease with stage 1 through stage 4 chronic kidney disease, or unspecified chronic kidney disease; E11.22 Type 2 diabetes mellitus with diabetic chronic kidney disease; N18.3 Chronic kidney disease, stage 3 (moderate); I25.10 Atherosclerotic heart disease of native coronary artery without angina pectoris; E11.51 Type 2 diabetes mellitus with diabetic peripheral angiopathy without gangrene; K59.00 Constipation, unspecified; E78.00 Pure hypercholesterolemia, unspecified; E78.5 Hyperlipidemia, unspecified; M19.90 Unspecified osteoarthritis, unspecified site; Z93.8 Other artificial opening status; Z95.0 Presence of cardiac pacemaker; Z95.1 Presence of aortocoronary bypass graft; Z95.5 Presence of coronary angioplasty implant and graft; Z87.891 Personal history of nicotine dependence; Z87.01 Personal history of pneumonia (recurrent); Z86.73 Personal history of transient ischemic attack (TIA), and cerebral infarction without residual deficits